=== PATIENT | female | born 1995 | race Caucasian/White ===

== ENCOUNTER 2016-10-04 07:57 | Emergency (ER) | payer BC ==
[~2016-10-04] VITALS: Ht 177.8 cm; Wt 72.0 kg
[2016-10-04 08:04] VITALS: TEMP 36.5; Ht 177.8 cm; Wt 72.0 kg
[2016-10-04] MEDS ORDERED: SODIUM CHLORIDE 0.9% 1000ML 1,000 ML IV STA (08:11)
[2016-10-04] MEDS ORDERED: ONDANSETRON INJ 2 MG/ML 2 ML VIAL IV STA (08:11)
[2016-10-04] MEDS ORDERED: KETOROLAC TROMETHAMINE 30 MG/ML VIAL IV STA (08:11)
[2016-10-04] MEDS ORDERED: NAPR1TAB9 PO (08:17)
--- NOTE | 2016-10-04 08:21 | EMERGENCY ROOM VISIT NOTE ---
History Report prepared by Hilda: Maximus Vora Under the Supervision of: Dr. Remy Guevara M.D. First contact with patient: 08:03 Chief Complaint: LEG PAIN,LEG INJURY Stated Complaint: PAIN IN LEFT LEG History of Present Illness The patient is a 21 year old female who presents to the Emergency Room with complaints of worsening left leg pain that started 4 days ago. She states that her pain is from her left hip and downwards. The patient says that her left hip hurts when rotating. She cannot sit or stand without pain. The patient has been dealing with this pain since June. She went to her primary care physician for the pain, and was referred to [facility] orthopedics. Orthopedics then referred her to physical therapy, where the patient was diagnosed with tendonitis. The patient did get a hip x-ray. After going to physical therapy a month ago, she felt fine for a while and had been exercising. 5 days ago, she ran for a bit and felt okay. She got a massage the next day, and later that day , the pain started to come on again. The patient states that the pain is so bad that it makes her cry. She denies any swelling to her leg or any sudden injury that may have caused the pain. The patient notes that she does not think she runs "right". She has been using an Aleve equivalent [id number] medication for the pain. She is a non-smoker and has no medication allergies. Source of History: patient Onset: 4 days ago Position: leg (left) Symptom Intensity: so bad that it makes her cry Timing: worsening Modifying Factors (Worsening): movement Note: Associated symptoms: Left hip pain. Denies any swelling to her leg. Review of Systems See HPI for pertinent positives & negatives. A total of 10 systems reviewed and were otherwise negative. Past Medical & Surgical Medical Problems: (1) Tendonitis Family History Cancer Social History Smoking Status: Never Smoker Alcohol Use: occasionally Marital Status: in relationship Housing Status: lives with significant other Occupation Status: employed Current/Historical Medications Scheduled Diclofenac (Voltaren), 75 MG PO BID Miscellaneous Medications Naproxen (Aleve), 440 MG PO Allergies Coded Allergies: No Known Allergies (Unverified , 10/04/16) Physical Exam Vital Signs Date Time Temp Pulse Resp B/P Pulse Ox O2 Delivery O2 Flow Rate FiO2 10/04/16 12:13 48 18 109/70 100 Room Air 10/04/16 10:53 52 18 104/56 98 Room Air 10/04/16 09:26 47 18 114/68 99 Room Air 10/04/16 08:04 36.5 56 18 118/72 99 Room Air Physical Exam GENERAL: Patient is in no acute distress. HEENT: No acute trauma, normocephalic atraumatic, mucous membranes moist, no nasal congestion, no scleral icterus. NECK: No stridor, no adenopathy, no meningismus, trachea is midline. LUNGS: Clear to auscultation bilaterally, no wheeze, no rhonchi, breath sounds equal. HEART: Without murmurs gallops or rubs, regular rate and rhythm. ABDOMEN: Soft, nontender, bowel sounds positive, no hernias, no peritonitis. EXTREMITIES: No leg swelling. No evidence for lower extremity neurovascular compromise. No swelling of the ankle or knee joints. Tenderness to palpation of left quadriceps muscle and left quadriceps tendon. No evidence of tendon rupture. Movement of left hip and left knee causes pain. NEUROLOGIC: Oriented x 3, no acute motor or sensory deficits, no focal weakness. SKIN: No rash, no jaundice, no diaphoresis. Medical Decision & Procedures ER Provider Diagnostic Interpretation: X ray results and stated below per my interpretation and radiologist interpretation. Other radiology results and stated below per my review and radiologist interpretation: PELVIS 1 OR 2 VIEW ROUTINE CLINICAL HISTORY: pain COMPARISON STUDY: No previous studies for comparison. FINDINGS: No fractures are visualized. There are no erosive or destructive changes. IMPRESSION: No fractures, dislocations, or destructive lesions are visualized. Electronically signed by: Osman Quijano M.D. 10/04/2016 9:21 AM Dictated Date/Time: 10/04/2016 9:20 AM ULTRASOUND LEFT VENOUS DOPP LOWER EXT UNILAT CLINICAL HISTORY: Left leg pain and swelling COMPARISON STUDY: No previous studies for comparison. FINDINGS: Real-time and color flow Doppler imaging were performed. Flow was seen within the femoral, popliteal and calf veins with no intraluminal thrombus demonstrated. The saphenous vein is patent. IMPRESSION: No evidence of left lower extremity DVT. Electronically signed by: Osman Quijano M.D. 10/04/2016 9:07 AM Dictated Date/Time: 10/04/2016 9:07 AM LEFT KNEE 1 OR 2 VIEWS ROUTINE CLINICAL HISTORY: pain, left COMPARISON: None. DISCUSSION: The bones and joint spaces appear intact. There is no evidence of fracture, dislocation or bony disease. There is no evidence for soft tissue swelling. IMPRESSION: Negative study. Electronically signed by: Edwin Brown M.D. 10/04/2016 9:22 AM Dictated Date/Time: 10/04/2016 9:21 AM LEFT FEMUR 2 VIEWS ROUTINE CLINICAL HISTORY: pain, left pain COMPARISON: None. DISCUSSION: The bones and joint spaces appear intact. There is no evidence of fracture, dislocation or bony disease. There is no evidence for soft tissue swelling. IMPRESSION: Negative study. Electronically signed by: Edwin Brown M.D. 10/04/2016 9:21 AM Dictated Date/Time: 10/04/2016 9:19 AM Laboratory Results 10/04/16 08:20 Red Blood Count 4.78, Mean Corpuscular Volume 85.8, Mean Corpuscular Hemoglobin 28.7, Mean Corpuscular Hemoglobin Concent 33.4, Mean Platelet Volume 10.0, Neutrophils (%) (Auto) 48.1, Lymphocytes (%) (Auto) 34.7, Monocytes (%) (Auto) 13.6, Eosinophils (%) (Auto) 3.2, Basophils (%) (Auto) 0.2, Neutrophils # (Auto ) 1.94, Lymphocytes # (Auto) 1.40, Monocytes # (Auto) 0.55, Eosinophils # (Auto ) 0.13, Basophils # (Auto) 0.01 10/04/16 08:20 Test 10/04/16 08:20 White Blood Count 4.04 K/uL (4.8-10.8) Red Blood Count 4.78 M/uL (4.2-5.4) Hemoglobin 13.7 g/dL (12.0-16.0) Hematocrit 41.0 % (37-47) Mean Corpuscular Volume 85.8 fL (80-100) Mean Corpuscular Hemoglobin 28.7 pg (25-34) Mean Corpuscular Hemoglobin Concent 33.4 g/dl (32-36) Platelet Count 163 K/uL (130-400) Mean Platelet Volume 10.0 fL (7.4-10.4) Neutrophils (%) (Auto) 48.1 % Lymphocytes (%) (Auto) 34.7 % Monocytes (%) (Auto) 13.6 % Eosinophils (%) (Auto) 3.2 % Basophils (%) (Auto) 0.2 % Neutrophils # (Auto) 1.94 K/uL (1.4-6.5) Lymphocytes # (Auto) 1.40 K/uL (1.2-3.4) Monocytes # (Auto) 0.55 K/uL (0.11-0.59) Eosinophils # (Auto) 0.13 K/uL (0-0.5) Basophils # (Auto) 0.01 K/uL (0-0.2) RDW Standard Deviation 41.4 fL (36.4-46.3) RDW Coefficient of Variation 13.2 % (11.5-14.5) Immature Granulocyte % (Auto) 0.2 % Immature Granulocyte # (Auto) 0.01 K/uL (0.00-0.02) Erythrocyte Sedimentation Rate 4 mm/hr (0-21) Anion Gap 9.0 mmol/L (3-11) Est Creatinine Clear Calc Drug Dose 137.1 ml/min Estimated GFR () 142.2 Estimated GFR (Non- 122.7 BUN/Creatinine Ratio 18.7 (10-20) Calcium Level 9.1 mg/dl (8.5-10.1) Total Creatine Kinase 57 U/L (26-192) C-Reactive Protein < 0.29 mg/dl (0-0.29) Thyroid Stimulating Hormone (TSH) 2.050 uIu/ml (0.300-4.500) Lyme Disease IgG Antibody NEG (NEG) Lyme Disease IgM Antibody NEG (NEG) Laboratory results reviewed by me. Medications Administered Medications (Trade) Dose Ordered Sig/Katty Route Start Time Stop Time Status Last Admin Dose Admin Ketorolac Tromethamine (Toradol Inj) 30 mg NOW STAT IV 10/04/16 08:11 10/04/16 08:15 DC 10/04/16 08:29 30 MG Morphine Sulfate (MoRPHine SULFATE INJ) 4 mg Q15M PRN IV 10/04/16 08:15 10/04/16 12:50 DC 10/04/16 09:38 4 MG Ondansetron HCl 4 mg 4 mg NOW STAT IV 10/04/16 08:11 10/04/16 08:15 DC 10/04/16 08:28 4 MG Sodium Chloride (Nss 1000ml) 1,000 ml @ 999 mls/hr Q1H1M STAT IV 10/04/16 08:11 10/04/16 09:11 DC 10/04/16 08:28 999 MLS/HR ED Course 0804: The patient was evaluated in room A12B. A complete history and physical exam was performed. 0811: Ordered NSS 1000 ml @ 999 mls/hr IV, Zofran Inj 4 mg IV, Toradol Inj 30 mg IV. 0815: Ordered Morphine Sulfate Inj 4 mg IV PRN. 0934: I reevaluated the patient. 1011: I discussed the patient with the on-call for [facility] - he will see if he can arrange to have someone see the patient or if he will have the patient come to the office. He will let us know. 1054: I reevaluated the patient and told her that she will be seen by orthopedics. 1215: Reevaluated the patient. Discussed results and discharge instructions: She verbalized understanding and agreement. The patient is ready for discharge. Medical Decision Differential diagnosis includes but is not limited to muscle tear, muscle strain , tendonitis, Lyme disease, rhabdomyolysis, contusion, DVT, over-use. There is no leukocytosis or concerning anemia. No significant electrolyte abnormality or kidney failure. Total CK is not suggestive of rhabdomyolysis. Left leg ultrasound does not show evidence for DVT. Pelvis, left femur and left knee films show no fractures. The patient appears to be in a euthyroid state. Sedimentation rate and C-reactive protein are both normal. The patient received IV saline, IV Toradol, IV morphine. She is more comfortable after the second dose of morphine. The patient was seen by orthopedics here in the emergency room. She is being discharged with crutches, rest, outpatient follow-up. She was encouraged to return here if worsening. The cause for her pain is not clear. Consults Time Called: 1008 Consulting Physician: On-call for [facility] Returned Call: 1011 I discussed the patient with the on-call for [facility] - he will see if he can arrange to have someone see the patient or if he will have the patient come to the office. He will let us know. Impression Primary Impression: Left leg pain Scribe Attestation The scribe's documentation has been prepared under my direction and personally reviewed by me in its entirety. I confirm that the note above accurately reflects all work, treatment, procedures, and medical decision making performed by me. Departure Information Dispostion Home / Self-Care Prescriptions Diclofenac (Voltaren) 75 Mg Tabcr 75 MG PO BID, #20 TAB Prov: Jourdan Schultz,P.A. 10/04/16 Referrals Ryan Bower, D.O. (PCP) Forms HOME CARE DOCUMENTATION FORM, IMPORTANT VISIT INFORMATION, TYLENOL USE Patient Instructions My [facility] Additional Instructions follow up with Dr. Ribeiro on 10/11 at 8:15am in the office ice intermittently as needed for pain control elevate the leg at night to reduce any swelling use crutches for ambulation-toe touch for balance for the next 3 days, then progress weight bearing as tolerated. stop aleve start voltaren 75mg twice per day with food. add tylenol every 6 hours as needed call the office for any worsening pain ([phone]) do not run or train. you may stretch as needed
[2016-10-04] MEDS: MoRPHine SULFATE 4 MG/ML 1 ML CARP\\VIAL IV PRN ×2 (08:28→09:38)
[2016-10-04 08:32] LABS: BASO % 0.2 %; BASO ABS # 0.01 K/uL (0-0.2); COMPLETE YES; EOS % 3.2 %; IG% 0.2 %; LYMPH % 34.7 %; MEAN CELL VOLUME 85.8 fL (80-100); MEAN CORPUSCULAR HEMOGLOBIN 28.7 pg (25-34); MEAN CORPUSCULAR HGB CONC 33.4 g/dl (32-36); MONO % 13.6 %; NEUT % 48.1 %; PLATELET COUNT 163 K/uL (130-400); RED BLOOD COUNT 4.78 M/uL (4.2-5.4); WHITE BLOOD COUNT 4.04 K/uL (4.8-10.8)
[2016-10-04 08:48] LABS: BUN/CREATININE RATIO 18.7 (10-20); CALCIUM 9.1 mg/dl (8.5-10.1); CREATININE 0.69 mg/dl (0.60-1.20); POTASSIUM 4.3 mmol/L (3.5-5.1)
[2016-10-04 08:58] LABS: THYROID STIMULATING HORMONE 2.05 uIu/ml (0.300-4.500)
--- NOTE | 2016-10-04 09:09 | DIAGNOSTIC IMAGING REPORT ---
ULTRASOUND LEFT VENOUS DOPP LOWER EXT UNILAT CLINICAL HISTORY: Left leg pain and swelling COMPARISON STUDY: No previous studies for comparison. FINDINGS: Real-time and color flow Doppler imaging were performed. Flow was seen within the femoral, popliteal and calf veins with no intraluminal thrombus demonstrated. The saphenous vein is patent. IMPRESSION: No evidence of left lower extremity DVT. Electronically signed by: Osman Quijano M.D. 10/04/2016 9:07 AM Dictated Date/Time: 10/04/2016 9:07 AM
--- NOTE | 2016-10-04 09:22 | DIAGNOSTIC IMAGING REPORT ---
LEFT FEMUR 2 VIEWS ROUTINE CLINICAL HISTORY: pain, left pain COMPARISON: None. DISCUSSION: The bones and joint spaces appear intact. There is no evidence of fracture, dislocation or bony disease. There is no evidence for soft tissue swelling. IMPRESSION: Negative study. Electronically signed by: Edwin Brown M.D. 10/04/2016 9:21 AM Dictated Date/Time: 10/04/2016 9:19 AM
--- NOTE | 2016-10-04 09:22 | DIAGNOSTIC IMAGING REPORT ---
PELVIS 1 OR 2 VIEW ROUTINE CLINICAL HISTORY: pain COMPARISON STUDY: No previous studies for comparison. FINDINGS: No fractures are visualized. There are no erosive or destructive changes. IMPRESSION: No fractures, dislocations, or destructive lesions are visualized. Electronically signed by: Osman Quijano M.D. 10/04/2016 9:21 AM Dictated Date/Time: 10/04/2016 9:20 AM
--- NOTE | 2016-10-04 09:23 | DIAGNOSTIC IMAGING REPORT ---
LEFT KNEE 1 OR 2 VIEWS ROUTINE CLINICAL HISTORY: pain, left COMPARISON: None. DISCUSSION: The bones and joint spaces appear intact. There is no evidence of fracture, dislocation or bony disease. There is no evidence for soft tissue swelling. IMPRESSION: Negative study. Electronically signed by: Edwin Brown M.D. 10/04/2016 9:22 AM Dictated Date/Time: 10/04/2016 9:21 AM
[2016-10-04 09:27] LABS: LYME DISEASE AB IGG NEG (NEG); LYME DISEASE AB IGM NEG (NEG)
[2016-10-04 12:13] VITALS: BP 109/70; PULSE 48; O2SAT 100
[2016-10-04] MEDS ORDERED: DICL-201 PO (12:14)
--- NOTE | 2016-10-04 13:20 | HISTORY & PHYSICAL EXAMINATION ---
DATE OF ADMISSION: 10/04/2016 CHIEF COMPLAINT: Left thigh pain. HISTORY OF PRESENT ILLNESS: This 21-year-old white female presented to the ED with complaints of left thigh pain that have been ongoing for the last several days. It has been getting worse with time. She previously had similar discomfort and was seen at our office by Dr. Ribeiro. She was diagnosed with hip flexor tendinitis and prescribed physical therapy. She states she did go to therapy and improved. She has continued with her home exercise program. She is trying to train for a 5K. She has been running on the treadmill. Approximately 5 days ago, she was jogging on the treadmill and decided to go a little faster for a short period of time. She increased the speed but states she only ran for only for about 30 seconds. She had no discomfort or pain at that point. Later that evening her discomfort increased. She states that it has been progressively worse. It is now affecting her sleep. She states she was crying last night because of the pain. She presented here to the ED with pain that caused her to cry as well. No numbness or tingling. Pain is transient. Sometimes it is on the lateral aspect of her pelvis, sometimes it is in the anterior thigh, and sometimes it is above the patella. She denies any fevers, chills, sweats, nausea, or vomiting. She was having some difficulty walking this morning. No other complaints at this point. No prior history of similar discomfort. No symptoms on the right. Her boyfriend accompanies her today. PAST MEDICAL HISTORY: Significant for hip flexor tendinitis. PREVIOUS SURGERIES: None. SOCIAL HISTORY: The patient is employed. No tobacco use, occasional ETOH use. Lives with her significant other. Employed. CURRENT MEDICATIONS: Aleve 440 mg b.i.d. ALLERGIES: NKDA. FAMILY HISTORY: Significant for cancer. Significant for scoliosis and degenerative disc disease. REVIEW OF SYSTEMS: Significant for above stated conditions, otherwise unremarkable. PHYSICAL EXAMINATION: GENERAL: Well-developed, well-nourished young, white female in no acute distress. Lying on a bed. Alert and oriented. VITAL SIGNS: Vitals today are normal. Temperature 36.5, pulse 56, BP 118/72, O2 sat 99% on room air. SKIN: Warm and dry with good turgor. No rashes or lesions. No ecchymosis or erythema. EXTREMITIES: No edema. MUSCULOSKELETAL: Left leg has no obvious asymmetry or deformity. She has full range of motion of her hip without discomfort. Full range of motion of her knee without discomfort. Stable cruciate and collateral ligaments. No intra-articular effusion at either site. No pain with palpation over her greater trochanter. Mild discomfort with palpation over the proximal IT band. This is intermittent and not reliably reproducible. She has no pain with palpation over her quadriceps or distal IT band. No pain with palpation over her hamstring musculature or tendons. Placing her leg in a slightly hip flexed, slightly knee flexed position at about 20 degrees, and having her actively extend her knee does create reproducible suprapatellar pouch discomfort. However, when I flex her knee to 80 or 90 degrees and have her stand there is no reproducible discomfort. No pain with palpation over the patella tendon or quadriceps tendon. There is no defect. No pain currently with palpation over the proximal hip flexor tendon. She is able to set her quad and perform a straight leg raise without difficulty. When side lying, she can also actively abduct. This does recreate some minor discomfort over the proximal IT band. No pain with log rolling of the hip. Bilateral ankle exam is benign. NEUROLOGIC: Gross sensation is intact across all dermatomes of the left leg by soft touch. Peripheral pulses are 2+. DTRs are 2+ at the knee and ankle. DATA: Pelvic x-ray obtained today was read by radiology as unremarkable. Left knee and left femur films were also obtained and were read by radiology as unremarkable. I did review these. I find no evidence for stress fracture or heterotopic ossification. Ultrasound obtained today of the left lower extremity was negative for DVT. This was read by radiology. CBC, PRP, TSH, total CK, and Lyme antibody were all obtained. They are all unremarkable. IMPRESSION: Left leg pain. Left hip flexor tendinitis. PLAN: The patient was educated regarding today's findings. Conservative care measures were discussed. Her symptoms are transient and not reliably reproduced. I am not sure exactly what is causing her symptoms. Possibility of exacerbation of her hip flexor tendinitis was discussed as well as possibility of IT band syndrome due to her running style. She has already been given Toradol, morphine, and Zofran. This may be blunting her discomfort and altering her physical exam. I would like her to stay on crutches and use toe touch weightbearing. Follow up with Dr. Ribeiro on October 11 at 8:15 in the morning for reexamination. If her pain should become acutely different, she should call the office for followup. She will stop the Aleve. She was prescribed Voltaren 75 mg b.i.d. with food for the next 10 days. Supplement with Tylenol. She may continue with gentle stretching, but should avoid any running or vigorous training. Care plan was discussed with Dr. Chen. Differential includes but is not limited to muscle tear, muscle strain, tendinopathy, tendinitis, Lyme disease, rhabdomyolysis, stress fracture of the femur, stress fracture of the hip, septic joint, DVT, overuse syndrome, and IT band syndrome.
[2016-10-04] MEDS ORDERED: IBUP-1459 PO (23:51)
[2016-10-06] MEDS ORDERED: NRN300 PO (17:18)
[2016-10-06] MEDS ORDERED: METH4PAK PO (17:18)
[2016-10-06] MEDS ORDERED: SENN8.6T7 PO (17:18)
[2016-10-06] MEDS ORDERED: RXC5 PO (17:18)
[2017-02-14] MEDS ORDERED: NAPR1TAB9 PO (13:37)
[2017-02-14] MEDS ORDERED: OXYC1TAB3 PO (13:37)
== END 2016-10-04 12:37 | disposition home or self-care (01) ==
LOC: C.EDB 08:00 → C.EDA 12:37
DX: M79.605 Pain in left leg (principal); M65.9 Synovitis and tenosynovitis, unspecified; Z80.9 Family history of malignant neoplasm, unspecified

== ENCOUNTER 2016-10-04 23:17 | Observation (INO) | payer BC ==
[~2016-10-04] VITALS: Ht 177.8 cm; Wt 71.2 kg
[~2016-10-04 23:17] MED LIST: DICL-201 PO; NAPR1TAB9 PO
[2016-10-04] MEDS ORDERED: SODIUM CHLORIDE 0.9% 1000ML 1,000 ML IV STA (23:41)
[2016-10-04] MEDS ORDERED: MoRPHine SULFATE 4 MG/ML 1 ML CARP\\VIAL IV STA (23:41)
[2016-10-04] MEDS ORDERED: IBUP-1459 PO (23:51)
[2016-10-05] MEDS ORDERED: HYDROmorphone INJ 1 MG/ML SYR IV STA (00:34)
[2016-10-05 00:49] LABS: URINE APPEARANCE CLEAR (CLEAR); URINE BILIRUBIN NEG (NEG); URINE COLOR YELLOW; URINE EPITHELIAL CELL AUTO >30 /lpf (0-5); URINE NITRITE NEG (NEG); URINE PH 6.5 (4.5-7.5); URINE SPECIFIC GRAVITY 1.019 (1.000-1.030); UROBILINOGEN NEG (NEG); ZZUR CULT IF INDIC CLEAN CATCH YES
[2016-10-05 00:51] LABS: MANUAL MICROSCOPIC REQUIRED? NO; REVIEW REQ? NO
[2016-10-05] MEDS ORDERED: METHYLPREDNISOLONE 125 MG VIAL IV STA (02:44)
[2016-10-05] MEDS ORDERED: IV FLUIDS COMPLETED PRN (03:15)
[2016-10-05 03:30] VITALS: BP 111/67; PULSE 43; TEMP 36.7; O2SAT 98; Ht 177.8 cm; Wt 71.2 kg
[2016-10-05] MEDS ORDERED: HYDROCODONE/ACETAMOPHEN 5/325MG TAB PO PRN (03:30)
--- NOTE | 2016-10-05 03:35 | History and Physical ---
History & Physical Date & Time of Service: Oct 05, 2016 at 03:27 Chief Complaint: Severe Pain In Left Leg Primary Care Physician: Ryan Bower D.ODasia History of Present Illness Source: patient, hospital records 21 year old female with no known past medical history presenting with persistent left leg pain since last Sunday. Follows with Dr. Bower for Primary Care. Patient was at her usual state of health until last Sunday, after exercising- treadmill, weights, planks- patient started to experience left leg pain initially on left lower leg, then on her thigh. The left leg pain continued on and actually progressed thereafter. Movement worsens the pain. No incontinence, leg weakness/numbness. Patient took Alleve with no relief of pain.. Denies recent trauma. Patient presented to the ER this morning. No DVT, Pelvic/knee/femoral xrays did not show fracture. She was discharged home, and but pain progressed; hence, returned to the ER in the evening. MRI Lumbar spine showed disc protrusion L4-s1 with mild-moderate canal narrowing. On exam, patient's leg pain somewhat impoved with IV Dilaudid, Solumedrol. No leg weakness/numbness. No other symptoms. Past Medical/Surgical History Medical Problems: (1) Tendonitis Status: Chronic Family History Cancer Social History Smoking Status: Never Smoker Marital Status: in relationship Occupational Status: employed Allergies Coded Allergies: No Known Allergies (Unverified , 10/04/16) Home Medications Scheduled Diclofenac (Voltaren), 75 MG PO BID Scheduled PRN Ibuprofen (Motrin), 400 MG PO Q6H PRN for Pain Miscellaneous Medications Naproxen (Aleve), 440 MG PO Review of Systems Constitutional- no fever; no weight loss Eyes- no acute visual changes ENT- no sinus drainage; no pharyngitis Pulmonary- no cough, no wheezing, no shortness of breath Cardiac- no chest pain, no palpitations, no orthopnea, no dependent edema GI- no nausea, no vomiting, no diarrhea, no melena, no hematochezia - no dysuria, no hematuria Musculoskeletal- no arthralgias, no myalgias Derm- no rashes, no new skin lesions, no changing skin lesions Hematologic- no unusual bruising, no unusual bleeding Lymphatics- no adenopathy Endocrine- no polyuria or polydipsia; no heat or cold intolerance Neuro- no headaches, no focal neurologic symptoms Psych- no anxiety, no depression Physical Exam Vital Signs Date Time Temp Pulse Resp B/P Pulse Ox O2 Delivery O2 Flow Rate FiO2 10/05/16 03:22 47 18 104/58 98 10/05/16 01:48 56 20 112/73 97 Room Air 10/05/16 00:51 50 16 113/70 96 Room Air 10/05/16 00:41 49 16 118/84 100 Room Air 10/04/16 23:24 36.9 54 20 120/79 100 Room Air General Appearance: WD/WN, no apparent distress Head: normocephalic, atraumatic Eyes: normal inspection, EOMI, sclerae normal ENT: normal ENT inspection, hearing grossly normal, pharynx normal Neck: supple, no adenopathy, thyroid normal, no JVD, trachea midline Respiratory/Chest: chest non-tender, lungs clear, normal breath sounds, no respiratory distress, no accessory muscle use Cardiovascular: regular rate, rhythm, no edema, no gallop, no JVD, no murmur Abdomen/GI: normal bowel sounds, non tender, soft Back: normal inspection, no CVA tenderness Extremities/Musculoskelatal: normal inspection, no calf tenderness, no pedal edema, + pertinent finding ((+) straight leg test) Neurologic/Psych: overnight houseperson II-XII nml as tested, no motor/sensory deficits, alert, normal mood/affect, normal reflexes, oriented x 3 Skin: normal color, warm/dry, no rash Lymphatic: + axillary node abnormality Diagnostics Laboratory Results Results Past 24 Hours Test 10/05/16 00:30 Range/Units Urine Color YELLOW Urine Appearance CLEAR CLEAR Urine pH 6.5 4.5-7.5 Urine Specific [place] 1.019 1.000-1.030 Urine Protein NEG NEG Urine Glucose (UA) NEG NEG Urine Ketones NEG NEG Urine Occult Blood NEG NEG Urine Nitrite NEG NEG Urine Bilirubin NEG NEG Urine Urobilinogen NEG NEG Urine Leukocyte Esterase NEG NEG Urine WBC (Auto) 1-5 0-5 /hpf Urine RBC (Auto) 0-4 0-4 /hpf Urine Hyaline Casts (Auto) 1-5 0-5 /lpf Urine Epithelial Cells (Auto) >30 0-5 /lpf Urine Bacteria (Auto) 1+ NEG Urine Test NEG NEG Microbiology Results 10/05/16 Urine Culture, Received Pending Diagnostic Radiology per H&P Impression Assessment and Plan 21 year old female with no known past medical history presenting with persistent left leg pain since last Sunday. INTRACTABLE LEFT LEG PAIN IN THE SETTING OF L4-S1 DISC HERNIATION WITH CENTRAL CANAL NARROWING - start with Dilaudid 1mg IV q3h, [place] 1 tab q4h PRN IV fluids, Senokot S PT/OT - Pain Management and Ortho Spine consult DVT prophylaxis SCDs Disposition pending anticipate d/c home when medically stable VTE Prophylaxis VTE Risk Assessment Done? Y/N: Yes Risk Level: Low
--- NOTE | 2016-10-05 03:40 | EMERGENCY ROOM VISIT NOTE ---
History Report prepared by Hilda: Anthony Contreras Under the Supervision of: Dr. Delfin Colvin M.D. First contact with patient: 23:32 Chief Complaint: LEG PAIN,LEG INJURY Stated Complaint: SEVERE PAIN IN LEFT LEG History of Present Illness The patient is a 21 year old female who presents to the Emergency Room with complaints of persistent left leg pain for the past four days. The pain is localized to the thigh area and radiates down to the [place]. The pain is worse with touch and movement. The patient was running on a treadmill and also had a deep tissue massage prior to the onset of pain four days ago. The patient was in the ED earlier today for the same pain and had negative X-rays. She had Morphine in the ED, which did help. The patient had back pain which is currently resolved. She denies incontinence of the bowel or bladder or weakness / numbness. She has not noticed any rashes. The patient had the same pain back in July when she was diagnosed with tendonitis. She followed up with Orthopedics at that time. The patient was also going to physical therapy, which did help. The patient denies any recent heavy lifting. The patient denies IV drug use. She is not a smoker. The patient denies the possibility of . Source of History: patient Onset: four days ago Position: leg (left) Timing: other (persistent) Modifying Factors (Worsening): movement, other (touch) Modifying Factors (Relieving): narcotics Associated Symptoms: + back pain, No numbness, No urinary symptoms, No weakness Review of Systems See HPI for pertinent positives & negatives. A total of 10 systems reviewed and were otherwise negative. Past Medical & Surgical Medical Problems: (1) Tendonitis Family History Cancer Social History Smoking Status: Never Smoker Alcohol Use: occasionally Marital Status: in relationship Housing Status: lives with significant other Occupation Status: employed Current/Historical Medications Scheduled Diclofenac (Voltaren), 75 MG PO BID Scheduled PRN Ibuprofen (Motrin), 400 MG PO Q6H PRN for Pain Miscellaneous Medications Naproxen (Aleve), 440 MG PO Allergies Coded Allergies: No Known Allergies (Unverified , 10/04/16) Physical Exam Vital Signs Date Time Temp Pulse Resp B/P Pulse Ox O2 Delivery O2 Flow Rate FiO2 10/05/16 03:22 47 18 104/58 98 10/05/16 01:48 56 20 112/73 97 Room Air 10/05/16 00:51 50 16 113/70 96 Room Air 10/05/16 00:41 49 16 118/84 100 Room Air 10/04/16 23:24 36.9 54 20 120/79 100 Room Air Physical Exam GENERAL: Patient is severely uncomfortable appearing, crying, in moderate distress. Severe pain with sitting up or turning over. HEENT: No acute trauma, normocephalic atraumatic, mucous membranes moist, no nasal congestion, no scleral icterus. NECK: No stridor, no adenopathy, no meningismus, trachea is midline. LUNGS: No dyspnea. Clear to auscultation and equal bilaterally. No wheeze, no rhonchi. HEART: Regular rate and rhythm. No murmurs, rubs, gallops appreciated. ABDOMEN: Soft, nontender, bowel sounds positive, no masses appreciated, no peritonitis. BACK: No midline tenderness, no CVA tenderness EXTREMITIES: Vague tenderness of the left upper buttock, left lateral thigh, and left lateral [place]. Pulses sensation and movement fully intact left leg. NEUROLOGIC: Alert and oriented, no acute motor or sensory deficits, no focal weakness, cranial nerves grossly intact. SKIN: No rash, no jaundice, no diaphoresis. Medical Decision & Procedures ER Provider Diagnostic Interpretation: Radiology results and stated below per my review and radiologist interpretation: MRI LUMBAR SPINE Disc protrusion/extrusions at the L4-L5 and L5-S1. Mild moderate central canal narrowing at the L4-L5. Cant exclude fragment in the left paracentral region subarticular recess. No foraminal compromise. Mild central canal narrowing at L5-S1. No foraminal compromise. Mild subcutaneous edema. Radiologist: Jess portillo MD. Laboratory Results Test 10/05/16 00:30 Urine Color YELLOW Urine Appearance CLEAR (CLEAR) Urine pH 6.5 (4.5-7.5) Urine Specific [place] 1.019 (1.000-1.030) Urine Protein NEG (NEG) Urine Glucose (UA) NEG (NEG) Urine Ketones NEG (NEG) Urine Occult Blood NEG (NEG) Urine Nitrite NEG (NEG) Urine Bilirubin NEG (NEG) Urine Urobilinogen NEG (NEG) Urine Leukocyte Esterase NEG (NEG) Urine WBC (Auto) 1-5 /hpf (0-5) Urine RBC (Auto) 0-4 /hpf (0-4) Urine Hyaline Casts (Auto) 1-5 /lpf (0-5) Urine Epithelial Cells (Auto) >30 /lpf (0-5) Urine Bacteria (Auto) 1+ (NEG) Urine Test NEG (NEG) Laboratory results as reviewed by me. Medications Administered Medications (Trade) Dose Ordered Sig/Katty Route Start Time Stop Time Status Last Admin Dose Admin Sodium Chloride (Nss 1000ml) 1,000 ml @ 999 mls/hr Q1H1M STAT IV 10/04/16 23:41 10/05/16 00:41 DC 10/04/16 23:59 999 MLS/HR Morphine Sulfate (MoRPHine SULFATE INJ) 4 mg NOW STAT IV 10/04/16 23:41 10/04/16 23:43 DC 10/05/16 00:00 4 MG Hydromorphone HCl (Dilaudid Inj) 1 mg NOW STAT IV 10/05/16 00:34 10/05/16 00:35 DC 10/05/16 00:41 1 MG Methylprednisolone Sodium Succinate (Solu-Medrol IV) 125 mg NOW STAT IV 10/05/16 02:44 10/05/16 02:46 DC 10/05/16 03:07 125 MG ED Course 2335: The patient was evaluated in room B12b. A complete history and physical exam was performed. 2340: The [place] Prescription Drug Monitoring Program was reviewed regarding this patient. 2341: Morphine Sulfate 4 mg IV, NSS 1000 ml @ 999 mls/hr. 0034: Dilaudid 1 mg IV. 0140: The patient is feeling good but is unable to sit up without severe pain. 0226: The patient is still unable to sit up secondary to pain. She feels pretty good at rest. 0243: Discussed the case with Dr. Callejas, Orthopedic Surgeon. He agrees with IV steroids and internal medicine evaluation. 0244: Solu-Medrol 125 mg IV. 0249: Updated the patient. She agrees with the plan. 0250: Spoke with Dr. Elias, [facility]. The patient will be evaluated. Medical Decision Differential: Musculoskeletal, Disc Herniation, Fracture, Cord Compression, Discitis, Infectious, Aortic Pathology, Renal Colic, UTI/Pyelonephritis, Acute Exacerbation of Chronic Pain, Sciatica, Cauda Equina, amongst other pathologies entertained. 21 yr old female arrives to ED for second time today complaining of left leg pain radiating mid lateral thigh to ankle. Increasing pain since discharge and unable to walk or sit up without severe pain. Exam she has intact neuro with good strength and normal pulses. Unable to have straight leg raise due to pain. Abdomen soft, non-tender. Extensive labs earlier negative with normal ESR/CRP. Normal xray imaging of leg/pel earlier. 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 [place] MRI lumbar needed to rule out issue there. Shows disc protrusion L4/5 and L5/S1. Non-surgical currently. With inability to even sit up without severe pain post morphine and dilaudid will need to come in for intractable pain and further work-up. No other neuro issues. Given IV solu-medrol with suspicion this is nerve related [place] Drug Monitoring Program Search Results: patient reviewed within database, no issues identified Consults Time Called: 225 Consulting Physician: Dr. Callejas, Orthopedic Surgeon Returned Call: [phone]: Discussed the case with Dr. Callejas, Orthopedic Surgeon. He agrees with IV steroids and internal medicine evaluation. Additional Consults: Time Called: 024 [facility] Returned Call: [phone] Additional Comments: 0250: [facility] The patient will be evaluated. Impression Primary Impression: Intractable back pain Additional Impression: Protrusion of intervertebral disc Scribe Attestation The scribe's documentation has been prepared under my direction and personally reviewed by me in its entirety. I confirm that the note above accurately reflects all work, treatment, procedures, and medical decision making performed by me. Departure Information Dispostion Being Evaluated By Hospitalist Referrals Ryan Bower D.O. (PCP) Patient Instructions [facility] Problem Qualifiers
[2016-10-05] MEDS ORDERED: SODIUM CHLORIDE 0.9% 1000ML 1,000 ML IV SCH (04:00)
[2016-10-05] MEDS: HYDROmorphone INJ 1 MG/ML SYR IV PRN ×4 (04:05→22:03)
[2016-10-05] MEDS: ONDANSETRON INJ 2 MG/ML 2 ML VIAL IV PRN (06:43)
[2016-10-05 07:25] VITALS: BP 97/61; PULSE 50; TEMP 37; O2SAT 97
--- NOTE | 2016-10-05 07:55 | DIAGNOSTIC IMAGING REPORT ---
LUMBAR SPINE MRI HISTORY: left leg intractable sciatica TECHNIQUE: Multiplanar multisequence MRI of the lumbar spine was performed without the use of contrast. COMPARISON: None. FINDINGS: For the purpose of the report the L5-S1 disc space will be located on axial image 27 of 30. Alignment and curvature are intact. No fracture or subluxation. There is disc desiccation and mild disc space narrowing at L4-L5 and L5-S1. The conus terminates at the L1 level. There is focal dilatation of the central canal at the distal thoracic spinal cord at the T12 level. This measures up to 3 mm and is consistent with a small syrinx. The visualized paraspinal soft tissues are unremarkable. L1-L2: No significant central canal or neural foraminal narrowing. L2-L3: No significant central canal or neural foraminal narrowing. L3-L4: No significant central canal or neural foraminal narrowing. L4-L5: There is an 18 x 7 mm broad-based posterior disc protrusion with a small focal segment demonstrating left paracentral inferior subligamentous migration. This results in [id number] central canal narrowing. This compresses the transiting left L5 nerve root and abuts the transiting right L5 nerve root. No significant neural foraminal narrowing. L5-S1: Moderate size focal central disc protrusion measuring 12 x 7 mm which abuts the left transiting S1 nerve root. This results in mild central canal narrowing. No significant neural foraminal narrowing. IMPRESSION: 1. There is an 18 x 7 mm broad-based posterior disc protrusion at L4-5 with an associated small focal left paracentral segment demonstrating inferior subligamentous migration. This results in [id number] central canal narrowing. This compresses the transiting left L5 nerve root and abuts the transiting right L5 nerve root. 2. Moderate size focal central disc protrusion at L5-S1 measuring 12 x 7 mm which abuts the left transiting S1 nerve root. This results in mild central canal narrowing. 3. A 3 mm focal syrinx within the distal thoracic spinal cord. Dedicated nonemergent thoracic spine MRI can be performed with intravenous contrast to assess for extension. Electronically signed by: Mikel Houston M.D. 10/05/2016 7:54 AM Dictated Date/Time: 10/05/2016 7:46 AM
[2016-10-05] MEDS: DOCUSATE SODIUM/SENNA 50/8.6MG TAB PO SCH (09:35)
[2016-10-05] MEDS: ACETAMINOPHEN 325 MG TAB PO PRN (09:36)
[2016-10-05] MEDS ORDERED: METHYLPREDNISOLONE 4MG TAB, 6 DAY TAPER PO SCH (09:45)
--- NOTE | 2016-10-05 09:58 | ORTHOPEDIC CONSULTATION ---
DATE OF ADMISSION: 10/05/2016 CHIEF COMPLAINT: Back pain, buttock and lower extremity difficulty, paresthesias. HISTORY: Bonnie is a delightful young lady. She is 21 years of age. She has a disc herniation lumbar spine L4-L5 and L5-S1. She was admitted for pain control very appropriately so. She actually went home yesterday afternoon on medication. I got called approximately 3:00 a.m. to potentially admit the patient. The medical staff was courteous enough to admit her to their service. I am serving as a consulting physician. She has lower extremity difficulty progressing, movement makes it worse, but no fevers, sweats, chills, or gallbladder issues. MEDICAL HISTORY: Tendinitis. FAMILY HISTORY: Carcinoma. SOCIAL HISTORY: Nonsmoker, non-ETOH user, employed, single. ALLERGIES: Negative. OUTPATIENT MEDICATIONS: Diclofenac. REVIEW OF SYSTEMS: She denies any blurred vision, double vision, tinnitus, vertigo, weight loss. Denies chest pain, shortness of breath. No nausea or vomiting. No loss of bowel or bladder function. OBJECTIVE: VITAL SIGNS: Blood pressure 104/58, pulse regular at 54 beats per minute, respirations 16, 36.9 temperature. LUNGS: Clear to auscultation. ABDOMEN: Soft, nontender. No organomegaly. No referred pain. BACK AND SPINE: Her lumbar spine was normal to inspection. No tenderness. No unusual skin markings such as zoster. EXTREMITIES: Intact x4. No edema or calf tenderness. Negative Homans sign. She has 5/5 strength of the lower and upper extremities, adequate sensation. She has significant pain with straight leg raising on the left. Positive Lasegue sign. Also positive straight leg raising on the right, contralateral. NEROLOGIC: Cranial nerves are intact. RECTAL: We did not do a rectal exam. IMAGES: Were reviewed demonstrating disc herniation L4-L5 and L5-S1, spinal canal narrowing. DISPOSITION: Right now, she is being admitted to the medical service which I am thankful for. She will need good medical care including some IV Solu-Medrol, possibly some Toradol, Neurontin, narcotics. She is being set up for some epidural injections. We are keeping surgery far way as a last resort, this could become a surgical problem. Hopefully, we can get her quieted down during this hospital stay and get her discharged home.
[2016-10-05 10:17] LABS: COMPLETE YES; EOS % 0.8 %; HEMATOCRIT 39.3 % (37-47); IG% 0.4 %; LYMPH % 22.9 %; MEAN CORPUSCULAR HEMOGLOBIN 28.2 pg (25-34); MEAN CORPUSCULAR HGB CONC 32.8 g/dl (32-36); MEAN PLATELET VOLUME 10.1 fL (7.4-10.4); MONO % 1.5 %; NEUT % 74.4 %; PLATELET COUNT 131 K/uL (130-400); RED BLOOD COUNT 4.57 M/uL (4.2-5.4); WHITE BLOOD COUNT 2.62 K/uL (4.8-10.8)
[2016-10-05 10:22] LABS: PROTHROMBIN TIME (PATIENT) 11.1 SECONDS (9.0-12.0)
[2016-10-05] MEDS: METHYLPREDNISOLONE 4 MG TAB PO SCH ×4 (11:19→21:27)
[2016-10-05 11:30] VITALS: BP 117/68; PULSE 48; O2SAT 98
--- NOTE | 2016-10-05 11:51 | Progress Note ---
Subjective Date of Service: Oct 05, 2016. Subjective Pt evaluation today including: conversation w/ patient, physical exam, lab review, review of studies, review of inpatient medication list Saw/examined the patient in room 383 Presented with lower extremity pain; L worse than R states that the pain is better with medications Problem List Medical Problems: (1) Intractable back pain Status: Acute (2) Protrusion of intervertebral disc Status: Acute Review of Systems Musculoskeletal: + joint pain (lower extremities; L Knee) Medications Current Inpatient Medications Medications (Trade) Dose Ordered Sig/Katty Route Start Time Stop Time Status Last Admin Dose Admin Miscellaneous (Iv Fluids Completed) 1 ea PRN PRN N/A 10/05/16 03:15 10/05/17 03:14 Acetaminophen (Tylenol Tab) 650 mg Q4H PRN PO 10/05/16 03:30 11/04/16 03:29 10/05/16 09:36 650 MG Ondansetron HCl (Zofran Inj) 4 mg Q6H PRN IV 10/05/16 03:30 11/04/16 03:29 10/05/16 06:43 4 MG Hydromorphone HCl 1 mg 1 mg Q3H PRN IV 10/05/16 03:30 10/19/16 03:29 10/05/16 11:25 1 MG Sodium Chloride (Nss 1000ml) 1,000 ml @ 60 mls/hr [id number] IV 10/05/16 04:00 10/05/16 20:39 10/05/16 04:10 60 MLS/HR Senna/Docusate Sodium (Senokot S Tab) 1 tab QAM PO 10/05/16 09:00 11/04/16 08:59 10/05/16 09:35 1 TAB Oxycodone HCl (Roxicodone Immediate Rel Tab) 5 mg Q4H PRN PO 10/05/16 09:45 10/19/16 09:44 Gabapentin (Neurontin Cap) 300 mg TID PO 10/05/16 14:00 11/04/16 13:59 Methylprednisolone (Medrol Tab) 8 mg 1100,2100 PO 10/05/16 11:00 10/05/16 21:01 10/05/16 11:19 8 MG Methylprednisolone (Medrol Tab) 4 mg 13,18 PO 10/05/16 13:00 10/05/16 18:01 Methylprednisolone (Medrol Tab) 4 mg 07,13,18 PO 10/06/16 07:00 10/06/16 18:01 Methylprednisolone (Medrol Tab) 8 mg HS PO 10/06/16 21:00 10/06/16 21:01 Methylprednisolone (Medrol Tab) 4 mg 07,13,18,21 PO 10/07/16 07:00 10/07/16 21:01 Methylprednisolone (Medrol Tab) 4 mg 07,13,21 PO 10/08/16 07:00 10/08/16 21:01 Methylprednisolone (Medrol Tab) 4 mg 07,21 PO 10/09/16 07:00 10/09/16 21:01 Methylprednisolone (Medrol Tab) 4 mg 07 PO 10/10/16 07:00 10/10/16 07:01 Objective Vital Signs Date Time Temp Pulse Resp B/P Pulse Ox O2 Delivery O2 Flow Rate FiO2 10/05/16 08:00 Room Air 10/05/16 07:25 37.0 50 16 97/61 97 Room Air 10/05/16 03:30 36.7 43 18 111/67 98 Room Air 10/05/16 03:30 36.7 43 18 111/67 98 Room Air 10/05/16 03:30 Room Air 10/05/16 03:22 47 18 104/58 98 10/05/16 01:48 56 20 112/73 97 Room Air 10/05/16 00:51 50 16 113/70 96 Room Air 10/05/16 00:41 49 16 118/84 100 Room Air 10/04/16 23:24 36.9 54 20 120/79 100 Room Air Physical Exam General Appearance: no apparent distress Neurologic/Psychiatric: alert, normal mood/affect, + motor weakness (painful ROM of the left LE, back) Laboratory Results Last 24 Hours Test 10/05/16 00:30 10/05/16 10:03 Urine Color YELLOW Urine Appearance CLEAR Urine pH 6.5 Urine Specific [place] 1.019 Urine Protein NEG Urine Glucose (UA) NEG Urine Ketones NEG Urine Occult Blood NEG Urine Nitrite NEG Urine Bilirubin NEG Urine Urobilinogen NEG Urine Leukocyte Esterase NEG Urine WBC (Auto) 1-5 /hpf Urine RBC (Auto) 0-4 /hpf Urine Hyaline Casts (Auto) 1-5 /lpf Urine Epithelial Cells (Auto) >30 /lpf Urine Bacteria (Auto) 1+ Urine Test NEG White Blood Count 2.62 K/uL Red Blood Count 4.57 M/uL Hemoglobin 12.9 g/dL Hematocrit 39.3 % Mean Corpuscular Volume 86.0 fL Mean Corpuscular Hemoglobin 28.2 pg Mean Corpuscular Hemoglobin Concent 32.8 g/dl Platelet Count 131 K/uL Mean Platelet Volume 10.1 fL Neutrophils (%) (Auto) 74.4 % Lymphocytes (%) (Auto) 22.9 % Monocytes (%) (Auto) 1.5 % Eosinophils (%) (Auto) 0.8 % Basophils (%) (Auto) 0.0 % Neutrophils # (Auto) 1.95 K/uL Lymphocytes # (Auto) 0.60 K/uL Monocytes # (Auto) 0.04 K/uL Eosinophils # (Auto) 0.02 K/uL Basophils # (Auto) 0.00 K/uL RDW Standard Deviation 41.3 fL RDW Coefficient of Variation 13.0 % Immature Granulocyte % (Auto) 0.4 % Immature Granulocyte # (Auto) 0.01 K/uL Prothrombin Time 11.1 SECONDS Prothromb Time International Ratio 1.0 Activated Partial Thromboplast Time 27.2 SECONDS Partial Thromboplastin Ratio 1.0 Assessment and Plan This is a 21 year old female presented with lower extremity pain, found to have lumbar disc protrusion L4-L5, L5-S1 Disc Herniation Lumbar spine MRI performed showing herniation appreciate ortho input, no surgery at this time pain management consulted started on steroids, IV toradol, neurontin epidural injection on 10/06 DVT ppx SCDs FULL CODE
[2016-10-05] MEDS: GABAPENTIN 300 MG CAP PO SCH ×2 (13:48→21:27)
[2016-10-05 15:19] VITALS: BP 105/58; PULSE 61; TEMP 36.3; O2SAT 99
[2016-10-05] MEDS: OXYCODONE HCL IR 5 MG TAB (IMMEDIATE RELEASE) PO PRN ×2 (17:40→21:28)
[2016-10-05 22:52] VITALS: BP 103/50; PULSE 72; TEMP 37; O2SAT 96
[2016-10-06] MEDS: HYDROmorphone INJ 1 MG/ML SYR IV PRN ×2 (04:30→08:13)
[2016-10-06] MEDS: METHYLPREDNISOLONE 4 MG TAB PO SCH ×3 (06:36→17:43)
[2016-10-06 07:50] VITALS: BP 118/86; PULSE 58; TEMP 36.7; O2SAT 96
[2016-10-06] MEDS ORDERED: TRIAMCINOLONE ACET 40 MG/ML VIAL ONE (08:34)
--- NOTE | 2016-10-06 09:03 | Pain Management Consultation ---
Pain Management Consultation Date of Consultation Oct 05, 2016. Reason for Consultation Pain management. History 21 year old female with history of left leg radicular pain admitted to [facility] for left lower extremity pain. This morning she reported experiencing left sided hip pain for several weeks duration that started about a month. She was seen by the primary care provider and was prescribed physical therapy and OTC and states. Prior to admission, she was jogging incident experiencing more distal radicular pain in the left lower extremity. She rates pain as 10/10 when severe, 4/10 when minimal. Pain is described as sharp, shooting episodes. She is "relatively comfortable" when she is in supine, immobile position. However, with any movement, pain reoccurs. She denied any saddle anesthesia, bowel bladder incontinence, any overt weakness, or any sensory changes and left lower extremity. Symptoms currently with activities of daily living. She has difficulty ambulating because weightbearing on left lower extremity reproduces pain. Since being admitted, she has been treated with mild opiate analgesics orally, IV hydromorphone, as well as IV steroids. MRI was obtained as an inpatient demonstrated 2 level disc herniation. Consultations requested to consider interventional therapy for her radicular pain. Past Medical/Surgical History (1) Tendonitis Social / Work History Smokeless Tobacco Use: No Marital Status: in relationship Occupation: employed Allergies Coded Allergies: No Known Allergies (Unverified , 10/04/16) Medications Current Inpatient Medications Medications (Trade) Dose Ordered Sig/Katty Route Start Time Stop Time Status Last Admin Dose Admin Miscellaneous (Iv Fluids Completed) 1 ea PRN PRN N/A 10/05/16 03:15 10/05/17 03:14 Acetaminophen (Tylenol Tab) 650 mg Q4H PRN PO 10/05/16 03:30 11/04/16 03:29 10/05/16 09:36 650 MG Ondansetron HCl (Zofran Inj) 4 mg Q6H PRN IV 10/05/16 03:30 11/04/16 03:29 10/05/16 06:43 4 MG Hydromorphone HCl (Dilaudid Inj) 1 mg Q3H PRN IV 10/05/16 03:30 10/19/16 03:29 10/05/16 04:05 1 MG Acetaminophen/ Hydrocodone Bitart 1 tab 1 tab Q4H PRN PO 10/05/16 03:30 10/19/16 03:29 10/05/16 08:07 1 TAB Sodium Chloride (Nss 1000ml) 1,000 ml @ 60 mls/hr [id number] IV 10/05/16 04:00 10/05/16 20:39 10/05/16 04:10 60 MLS/HR Senna/Docusate Sodium (Senokot S Tab) 1 tab QAM PO 10/05/16 09:00 11/04/16 08:59 10/05/16 09:35 1 TAB Review of Systems Denies any recent history of fever, night sweats, unexplained weight loss, or constitutional symptoms. Otherwise, 8 point review of system has been reported to be negative. Physical Exam Height & Weight: Height 5 feet, 10.00 inches. Weight 71.200 (Kilograms) 156 (Pounds) Last Vital Signs Documentation Date Time Temp Pulse Resp B/P Pulse Ox O2 Delivery O2 Flow Rate FiO2 10/05/16 07:25 37.0 50 16 97/61 97 Room Air Exam: Bonnie is alert and oriented. Mood and affect are appropriate. Short-term and long-term memory is intact. Sensorium is clear. Inspection of the lumbar spine demonstrates normal curvature with decreased range of motion due to leg pain. No lesions are noted in the lumbar spine region. Provocative testing of the facet joints is unremarkable. Provocative testing of the sacroiliac joints bilaterally including 5 provocative tests is negative. No myofascial tenderness or trigger points identifiable in the paraspinous musculature. Neurologically, straight leg raising is positive, markedly, on the left side at 35 and worsens with acutely stretch. Straight leg raising on the right side is negative past 90 and no changes noted Achilles stretch. Cross straight leg raising is positive with pain on the left side. Sensation and motor strength in the lower extremity are symmetrical without deficit. No pathologic reflexes are noted in the lower extremities. Gait was not tested. Patellar Reflex L +2 R +2 Achilles Reflex L +2 R +2 Laboratory / Imaging Results Imaging: L/S spine MRI: IMPRESSION: 1. There is an 18 x 7 mm broad-based posterior disc protrusion at L4-5 with an associated small focal left paracentral segment demonstrating inferior subligamentous migration. This results in [id number] central canal narrowing. This compresses the transiting left L5 nerve root and abuts the transiting right L5 nerve root. 2. Moderate size focal central disc protrusion at L5-S1 measuring 12 x 7 mm which abuts the left transiting S1 nerve root. This results in mild central canal narrowing. 3. A 3 mm focal syrinx within the distal thoracic spinal cord. Dedicated nonemergent thoracic spine MRI can be performed with intravenous contrast to assess for extension. Electronically signed by: Mikel Houston M.D. 10/05/2016 7:54 AM Assessment 1. L4/L5 and L5/S1 disk herniation with radiculitis left leg. Recommendations 1. Scheduled for L4/L5 and L5/S1 transforaminal epidural steroid injection tomorrow at 8 am. 2. D/C hydrocodone, solumedrol. 3. Start medrol dose pack, oxycodone and gabapentin. 4. Recommend follow up MRI with contrast to evaluate the syrinx found on this current MRI. [employer] Voice Recognition This chart was completed in part utilizing [employer] Voice Recognition Software. Random word insertions, pronoun errors, and incomplete sentences are an occasional consequence of this system due to software limitations and ambient noise. Any questions or concerns about the content, text or information contained within the body of this dictation should be directly addressed to the provider for clarification.
--- NOTE | 2016-10-06 09:07 | Pain Clinic Procedure Note ---
Pain Management Procedure Note Date of Procedure Oct 06, 2016. Procedure Description Procedure: Left L4/L5 and L5/S1 transforaminal epidrual steroid injection. Procedure Time Out: side/site verified, patient ID confirmed, correct procedure Consent Obtained: written Performed By: Dr. Duarte Indications: diagnostic, therapeutic Contraindications: none Pre Procedure Vital Signs Date Time Temp Pulse Resp B/P Pulse Ox O2 Delivery O2 Flow Rate FiO2 10/06/16 07:50 36.7 58 16 118/86 96 Room Air ASA Class: 1 Description: LUMBAR TRANSFORAMINAL EPIDURAL STEROID INJECTION Diagnosis: Intervertebral disc disorder. Lumbar radiculitis. Level injected: Left L4/L5 and L5/S1. Surgeon: Dr. Duarte Prior to starting, the Patients diagnosis and the procedure were reviewed with the patient in detail. Possible risks, complications and alternative therapies were also reviewed. Patients questions were answered. Informed consent was obtained. Allergies and medication list was reviewed. The patient was brought to the fluoroscopy room and placed in prone position on the table. Immediately prior to starting the procedure, a time out was conducted with the staff and the patient where the patient was identified, proposed procedure was verified, consent was reviewed and the proper site for the planned procedure was identified. Fluoroscopy was utilized in performing the procedure to assist the placement of the needle, to evaluate the final position of the needle prior to injection and to avoid intravascular injection. Monitors used included intermittent blood pressure with automated device, continuous pulse oximetry and level of consciousness. Patient was not given any intravenous sedation and constant verbal contact was maintained throughout the procedure. Biplanar fluoroscopy was used to assist in placement of the needle as well as to evaluate final needle position prior to the injection. On examination, no signs of skin breakdown or infection were noted at the injection site. Lumbar-sacral area was prepped with DuraPrep followed by Betadine solution. Sterile drapes were applied. The appropriate interspace and disk was identified in a true AP view. The fluoroscope was then rotated to obtain a decubitus view in such a manner so that the superior articular process of the inferior vertebra was bisecting the pars inter-articularis of the vertebra above in two or in the 6 oclock position. A 22 Gauge 3.5 inch curved (15 degrees) spinal needle was inserted through the skin and subcutaneous tissues, after local anesthetic infiltration, and advanced in a co-axial technique. Needle tip was first placed on the infero-lateral margin of the pars inter-articularis. Once the bony margin was contacted, the C-arm was rotated to obtain a lateral view. The needle was slowly walked off the bone and advanced toward the anterior and superior aspect of the foramen. Patient did not experience any pain or paresthesia. Six inch micro bore tubing was attached to the needle and aspiration did not demonstrate CSF or blood. AP view was checked to ensure the needle tip was in close proximity to the nerve root in the proximal neural foramen lateral to the inferior articular process and in the 6 oclock position. 1 cc of Isovue 300 contrast was injected via the needle under live fluoroscopy. Spread of the contrast was noted in the epidural space and along the nerve root. Neither subdural or subarachnoid spread nor intravascular uptake was noted on plain fluoroscopy. Approximately 10 second digital subtraction angiogram at 8 f/s rate was done in AP view with additional contrast. No vascular uptake was noted. Next 40 mg of Kenalog was injected at each site followed by 1 cc of 2% Xylocaine MPF to flush the needle. The patient did not experience pain during the injection. Adequate hemostasis was noted. A sterile Band-Aid was applied to the injection site. Patient was monitored for 30 minutes and discharged with an accompanying adult. Discharge instructions were reviewed with the patient/caregiver. Any specific questions were answered. Patient/caregiver voiced understanding of the instructions. Follow-up appointment has been scheduled. Complications: none Patient Tolerated Procedure: well Post-Procedure Vital Signs: Vital Signs Date Time Temp Pulse Resp B/P Pulse Ox O2 Delivery O2 Flow Rate FiO2 10/06/16 07:50 36.7 58 16 118/86 96 Room Air Discharge Instructions: reviewed & understood Additional Comments: Patient is scheduled for follow-up visit and possible repeat L4/L5 and L5/S1 transforaminal epidural steroid injection [facility] in 10 days to 2 weeks. Discharge instructions were reviewed with the patient.
[2016-10-06] MEDS: ONDANSETRON INJ 2 MG/ML 2 ML VIAL IV PRN (09:35)
--- NOTE | 2016-10-06 09:36 | Pain Management Progress Note ---
Pain Management Progress Note Date of Service Oct 06, 2016. Subjective Reports no change in symptoms. Continues to have left leg radicular pain. Reports minimal improvement with his oxycodone. Reports no side effects to the oxycodone or gabapentin. He underwent L5/S1 and L4/L5 transforaminal epidural steroid injection this morning uneventfully. Objective Vital Signs: Last Vital Signs Documentation Date Time Temp Pulse Resp B/P Pulse Ox O2 Delivery O2 Flow Rate FiO2 10/06/16 07:50 36.7 58 16 118/86 96 Room Air Physical Exam: A/O.. Positive SLR left. No sensory/motor deficits. Laboratory (Last CBC): 10/05/16 10:03 Red Blood Count 4.57, Mean Corpuscular Volume 86.0, Mean Corpuscular Hemoglobin 28.2, Mean Corpuscular Hemoglobin Concent 32.8, Mean Platelet Volume 10.1, Neutrophils (%) (Auto) 74.4, Lymphocytes (%) (Auto) 22.9, Monocytes (%) (Auto) 1.5, Eosinophils (%) (Auto) 0.8, Basophils (%) (Auto) 0.0, Neutrophils # (Auto) 1.95, Lymphocytes # (Auto) 0.60 L, Monocytes # (Auto) 0.04 L, Eosinophils # ( Auto) 0.02, Basophils # (Auto) 0.00 [place] Drug Monitoring [place] Search Results: patient reviewed within database Assessment 1. Interview with this disorder with lumbar radiculitis left lower extremity. Recommendations 1. Underwent uneventful transforaminal epidural steroid injections morning. 2. May be discharged later today or tomorrow if symptoms improve and can be managed with by oral oxycodone, gabapentin and remaining of the Medrol Dosepak. 3. Recommend follow-up MRI with and without contrast as an outpatient to evaluate the incidental finding of a syrinx on the current MRI. 4. Has a follow-up appointment at [facility] for further outpatient management. [employer] Voice Recognition This chart was completed in part utilizing [employer] Voice Recognition Software. Random word insertions, pronoun errors, and incomplete sentences are an occasional consequence of this system due to software limitations and ambient noise. Any questions or concerns about the content, text or information contained within the body of this dictation should be directly addressed to the provider for clarification.
[2016-10-06] MEDS: DOCUSATE SODIUM/SENNA 50/8.6MG TAB PO SCH (09:43)
[2016-10-06] MEDS: GABAPENTIN 300 MG CAP PO SCH ×2 (09:43→13:36)
--- NOTE | 2016-10-06 09:43 | Discharge Instructions ---
Discharge Instructions Date of Service Oct 06, 2016. Visit Reason for Visit: Left Leg Pain Discharge Discharge Diagnosis / Problem: Intervertebral dissk disorder. Hernisated L4/ L5 and L5/S1. Discharge Goals Goal(s): Decrease discomfort, Improve function Medications Stopped Medications Name(s): none Activity Recommendations Activity Recommendations: no lifting of items 5lbs or more, no repetitive bending, no repetitive twists Exercise/Sports Limitations: rest today, until after follow-up appointment May Resume Sexual Activity: when tolerated Shower/Bathe: no limitations Driving or Machine Use: resume 1 day after discharge Anesthesia . Post Anesthesia Instructions: If you have had General Anesthesia or IV Sedation: * Do not drive today. * Resume driving when surgeon permits. * Do not make important decisions or sign legal documents today. * Call surgeon for: * Temperature elevations greater than 101 degrees F. * Uncontrollable pain. * Excessive bleeding. * Persistent nausea and vomiting. * Medication intolerance (nausea, vomiting or rash). * For nausea and vomiting use only clear liquids such as: tea, soda, bouillon until nausea subsides, then gradually increase diet as tolerated. * If you have any concerns or questions, call your surgeon's office. If physician is unavailable and it is an emergency, call 911 or go to the nearest emergency room. . Instructions Instructions / Follow-Up . * Change band aid. * Call [facility] [phone] or go to the nearest emergency room if he experience high fevers, new back pain, new neurological symptoms such as numbness or weakness in the lower extremity or new bowel bladder incontinence. Also of call if he experience a headache that is positional. * Resume normal activity. No repetitive bending, twisting or reaching overhead for 2 weeks. Do not lift more than 5 pounds for 2 weeks. . Follow-Up Follow-Up: routine office visit in 1/2 weeks (10/20/16 at 9:15 AM) Diet Recommendations Home Diet: no limitations Procedures Procedures Performed: Left L4/L5 and L5/S1 transforaminal epidural epidural steroid injection. Pending Studies Studies pending at discharge: no Medical Emergencies . Who to Call and When: Medical Emergencies: If at any time you feel your situation is an emergency, please call 911 immediately. . Non-Emergent Contact Non-Emergency issues call your: Pain Management provider Call Non-Emergent contact if: you have a fever, temperature is above 101.5, your pain is worsening, your pain is unusual for you, you have any medication questions . . "Provider Documentation" section prepared by Chava Duarte. [place] Drug Monitoring [place] Search Results: patient reviewed within database (Patient not found in [place] PDMP. )
--- NOTE | 2016-10-06 11:53 | Progress Note ---
Subjective Date of Service: Oct 06, 2016. Subjective Pt evaluation today including: conversation w/ patient, physical exam, lab review, review of studies, review of inpatient medication list Saw/examined the patient in room 383 She had an epidural injection today No problems with this procedure Pain is improving Problem List Medical Problems: (1) Intractable back pain Status: Acute (2) Protrusion of intervertebral disc Status: Acute Review of Systems Musculoskeletal: + joint pain (back pain radiating to the left leg) Medications Current Inpatient Medications Medications (Trade) Dose Ordered Sig/Katty Route Start Time Stop Time Status Last Admin Dose Admin Miscellaneous (Iv Fluids Completed) 1 ea PRN PRN N/A 10/05/16 03:15 10/05/17 03:14 Acetaminophen (Tylenol Tab) 650 mg Q4H PRN PO 10/05/16 03:30 11/04/16 03:29 10/05/16 09:36 650 MG Ondansetron HCl (Zofran Inj) 4 mg Q6H PRN IV 10/05/16 03:30 11/04/16 03:29 10/06/16 09:35 4 MG Senna/Docusate Sodium (Senokot S Tab) 1 tab QAM PO 10/05/16 09:00 11/04/16 08:59 10/06/16 09:43 1 TAB Oxycodone HCl (Roxicodone Immediate Rel Tab) 5 mg Q4H PRN PO 10/05/16 09:45 10/19/16 09:44 10/05/16 21:28 5 MG Gabapentin (Neurontin Cap) 300 mg TID PO 10/05/16 14:00 11/04/16 13:59 10/06/16 09:43 300 MG Methylprednisolone (Medrol Tab) 4 mg 07,13,18 PO 10/06/16 07:00 10/06/16 18:01 10/06/16 06:36 4 MG Methylprednisolone (Medrol Tab) 8 mg HS PO 10/06/16 21:00 10/06/16 21:01 Methylprednisolone (Medrol Tab) 4 mg 07,13,18,21 PO 10/07/16 07:00 10/07/16 21:01 Methylprednisolone (Medrol Tab) 4 mg 07,13,21 PO 10/08/16 07:00 10/08/16 21:01 Methylprednisolone (Medrol Tab) 4 mg 07,21 PO 10/09/16 07:00 10/09/16 21:01 Methylprednisolone (Medrol Tab) 4 mg 07 PO 10/10/16 07:00 10/10/16 07:01 Objective Vital Signs Date Time Temp Pulse Resp B/P Pulse Ox O2 Delivery O2 Flow Rate FiO2 10/06/16 07:50 36.7 58 16 118/86 96 Room Air 10/05/16 23:20 Room Air 10/05/16 22:52 37.0 72 14 103/50 96 Room Air 10/05/16 16:00 Room Air 10/05/16 15:19 36.3 61 18 105/58 99 Room Air Physical Exam General Appearance: no apparent distress Respiratory/Chest: lungs clear, normal breath sounds, no respiratory distress, no accessory muscle use Cardiovascular: regular rate, rhythm, no edema, no murmur Extremities: + pertinent finding (improving ROM) Neurologic/Psychiatric: alert, normal mood/affect Assessment and Plan This is a 21 year old female presented with lower extremity pain, found to have lumbar disc protrusion L4-L5, L5-S1 Disc Herniation 10/06 s/p epidural injection will continue medrol dosepak gabapentin oxycodone increased to 7.5mg if pain tolerable with oral medications, she can be discharged later today, or tomorrow on 10/07 10/05 Lumbar spine MRI performed showing herniation appreciate ortho input, no surgery at this time pain management consulted started on steroids, IV toradol, neurontin epidural injection on 10/06 DVT ppx SCDs FULL CODE
[2016-10-06] MEDS: ACETAMINOPHEN 325 MG TAB PO PRN (11:58)
--- NOTE | 2016-10-06 14:37 | PAIN MANAGEMENT PROGRESS NOTE ---
DATE: 10/06/2016 DATE: 10/06/2016. SUBJECTIVE: She is better and she is improved stable. Decreased pain. Better functional ability. OBJECTIVE: VITAL SIGNS: Stable. Pain management on board. No neurological deficit. IMPRESSION: 21-year-old female with disc herniation lumbar spine improving, stabilizing. DISPOSITION: She will have pain management involved later on today the 06 of October. Hopefully get her home later on today or tomorrow. I will be rounding on her again on the September. Surgery not indicated.
[2016-10-06 15:03] VITALS: BP 111/65; PULSE 77; TEMP 36.5; O2SAT 97
[2016-10-06 15:52] VITALS: BP 124/85
[2016-10-06] MEDS: OXYCODONE HCL IR 5 MG TAB (IMMEDIATE RELEASE) PO PRN (15:54)
[2016-10-06] MEDS ORDERED: METH4PAK PO (17:18)
[2016-10-06] MEDS ORDERED: SENN8.6T7 PO (17:18)
[2016-10-06] MEDS ORDERED: NRN300 PO (17:18)
[2016-10-06] MEDS ORDERED: RXC5 PO (17:18)
--- NOTE | 2016-10-06 17:22 | Discharge Instructions ---
Discharge Instructions Date of Service Oct 06, 2016. Admission Reason for Admission: Left Leg Pain Discharge Discharge Diagnosis / Problem: Lumbar Disc Herniation with radiculopathy Discharge Goals Goal(s): Decrease discomfort, Improve function, Diagnostic testing, Therapeutic intervention Activity Recommendations Activity Limitations: resume your previous activity . Instructions / Follow-Up Instructions / Follow-Up Please follow-up with your primary care doctor as an outpatient (you will get a phone call with an appointment) You will be sent home on gabapentin 300mg three times a day You will be sent home with oxycodone - use this only as needed for severe pain - do not drive if you take this You will also be sent home with a medrol dose sonya - skip day #1, tonight (10/06) at supper take a 4mg pill, and 8mg before bedtime, then start day #3 to the end of the pack Follow-up with pain management in 1-2 weeks Current Hospital Diet Patient's current hospital diet: Regular Diet Discharge Diet Recommended Diet: Regular Diet Procedures Procedures Performed: Left L4/L5 and L5/S1 transforaminal epidural epidural steroid injection. Pending Studies Studies pending at discharge: no Medical Emergencies . Who to Call and When: Medical Emergencies: If at any time you feel your situation is an emergency, please call 911 immediately. . Non-Emergent Contact Non-Emergency issues call your: Primary Care Provider . . "Provider Documentation" section prepared by Carmen Sexton. VTE Core Measure Inpt VTE Proph given/why not?: SCD's [place] Drug Monitoring [place] Search Results: no issues identified
[2016-10-06 17:23] VITALS: BP 124/85; PULSE 77; TEMP 36.5; O2SAT 97
--- NOTE | 2016-10-06 17:24 | Discharge Summary ---
Discharge Summary Date of Service Oct 06, 2016. Discharge Summary Admission Date: Oct 05, 2016 at 02:53 Discharge Date: Oct 06, 2016 Discharge Disposition: Home Principal Diagnosis: Lumbar Disc Herniation with Radicular Pain Medication Reconciliation New Medications: Methylprednisolone (Medrol Dosepak) 4 Mg Brandon 1 PKT PO DAILY, #1 PKT Gabapentin (Gabapentin) 300 Mg Cap 300 MG PO TID for 15 Days, #45 CAP Oxycodone HCl (Oxycodone HCl) 5 Mg Tab 5 MG PO Q4H PRN for Pain for 10 Days, #40 TAB Sennosides-Docusate Sodium (Senokot S) 1 Tab Tab 1 TAB PO QAM for 20 Days, #20 TAB Continued Medications: Ibuprofen (Motrin) 400 Mg Tab 400 MG PO Q6H PRN for Pain, TAB Naproxen (Aleve) 220 Mg Tab 440 MG PO, TAB Discontinued Medications: Diclofenac (Voltaren) 75 Mg Tabcr 75 MG PO BID, #20 TAB Admission Information HPI (per Admitting provider): 21 year old female with no known past medical history presenting with persistent left leg pain since last Sunday. Follows with Dr. Bower for Primary Care. Patient was at her usual state of health until last Sunday, after exercising- treadmill, weights, planks- patient started to experience left leg pain initially on left lower leg, then on her thigh. The left leg pain continued on and actually progressed thereafter. Movement worsens the pain. No incontinence, leg weakness/numbness. Patient took Alleve with no relief of pain.. Denies recent trauma. Patient presented to the ER this morning. No DVT, Pelvic/knee/femoral xrays did not show fracture. She was discharged home, and but pain progressed; hence, returned to the ER in the evening. MRI Lumbar spine showed disc protrusion L4-s1 with mild-moderate canal narrowing. On exam, patient's leg pain somewhat impoved with IV Dilaudid, Solumedrol. No leg weakness/numbness. No other symptoms. Physical Exam (per Admitting): General Appearance: WD/WN, no apparent distress Head: normocephalic, atraumatic Eyes: normal inspection, EOMI, sclerae normal ENT: normal ENT inspection, hearing grossly normal, pharynx normal Neck: supple, no adenopathy, thyroid normal, no JVD, trachea midline Respiratory/Chest: chest non-tender, lungs clear, normal breath sounds, no respiratory distress, no accessory muscle use Cardiovascular: regular rate, rhythm, no edema, no gallop, no JVD, no murmur Abdomen/GI: normal bowel sounds, non tender, soft Back: normal inspection, no CVA tenderness Extremities/Musculoskelatal: normal inspection, no calf tenderness, no pedal edema, + pertinent finding ((+) straight leg test) Neurologic/Psych: frame trimmer II-XII nml as tested, no motor/sensory deficits, alert , normal mood/affect, normal reflexes, oriented x 3 Skin: normal color, warm/dry, no rash Lymphatic: + axillary node abnormality Hospital Course This is a 21 year old female presented with lower extremity pain, found to have lumbar disc protrusion L4-L5, L5-S1 Disc Herniation 10/06 s/p epidural injection will continue medrol dosepak gabapentin oxycodone increased to 7.5mg if pain tolerable with oral medications, she can be discharged later today, or tomorrow on 10/07 10/05 Lumbar spine MRI performed showing herniation appreciate ortho input, no surgery at this time pain management consulted started on steroids, IV toradol, neurontin epidural injection on 10/06 DVT ppx SCDs FULL CODE Total time spent on discharge = 25 minutes This includes examination of the patient, discharge planning, medication reconciliation, and communication with other providers. Discharge Instructions Please follow-up with your primary care doctor as an outpatient (you will get a phone call with an appointment) You will be sent home on gabapentin 300mg three times a day You will be sent home with oxycodone - use this only as needed for severe pain - do not drive if you take this You will also be sent home with a medrol dose brandon - skip day #1, tonight (10/06) at supper take a 4mg pill, and 8mg before bedtime, then start day #3 to the end of the pack Follow-up with pain management in 1-2 weeks
[2016-10-06] MEDS ORDERED: METHYLPREDNISOLONE 4 MG TAB PO SCH (21:00)
[2016-10-07] MEDS ORDERED: METHYLPREDNISOLONE 4 MG TAB PO SCH (07:00)
[2016-10-08] MEDS ORDERED: METHYLPREDNISOLONE 4 MG TAB PO SCH (07:00)
[2016-10-09] MEDS ORDERED: METHYLPREDNISOLONE 4 MG TAB PO SCH (07:00)
[2016-10-10] MEDS ORDERED: METHYLPREDNISOLONE 4 MG TAB PO SCH (07:00)
[2017-02-14] MEDS ORDERED: NAPR1TAB9 PO (13:37)
[2017-02-14] MEDS ORDERED: OXYC1TAB3 PO (13:37)
== END 2016-10-06 18:25 | disposition home or self-care (01) ==
LOC: ENRESERVDT → ENRESERVTM → C.EDB 23:18 → C.MSN 10-05 02:53
PROVIDERS: ADMIT Internal Medicine; ATTEND Family Medicine
DX: M51.16 Intervertebral disc disorders with radiculopathy, lumbar region (principal)

== ENCOUNTER 2017-07-10 16:34 | Emergency (ER) | payer OTHER, BC ==
[~2017-07-10] VITALS: Ht 177.8 cm; Wt 75.0 kg
[~2017-07-10 16:34] MED LIST changes: -DICL-201 PO; +OXYC1TAB3 PO
[2017-07-10 16:44] VITALS: TEMP 36.8; Ht 177.8 cm; Wt 75.0 kg
[2017-07-10] MEDS ORDERED: MoRPHine SULFATE 4 MG/ML 1 ML CARP\\VIAL IV STA ×2 (16:55→18:35)
[2017-07-10] MEDS ORDERED: ONDANSETRON INJ 2 MG/ML 2 ML VIAL IV STA (16:55)
[2017-07-10] MEDS ORDERED: KETOROLAC TROMETHAMINE 30 MG/ML VIAL IV STA (16:55)
[2017-07-10] MEDS ORDERED: DEXAMETHASONE SOD INJ 4 MG/ML VIAL IV STA (16:55)
--- NOTE | 2017-07-10 18:03 | DIAGNOSTIC IMAGING REPORT ---
L-SPINE MIN 4 VIEWS ROUTINE CLINICAL HISTORY: Low back pain status post fall. COMPARISON: None FINDINGS: Alignment of the lumbar spine is anatomic. Vertebral body heights are maintained. There is no fracture. Facet joints are intact. There is no osteophytosis. There may be minimal multilevel disc space narrowing. IMPRESSION: No lumbar spine fracture or subluxation. Electronically signed by: Remberto Mensah M.D. 07/10/2017 6:02 PM Dictated Date/Time: 07/10/2017 6:01 PM
[2017-07-10] MEDS ORDERED: IBUP-103 PO (18:04)
--- NOTE | 2017-07-10 18:04 | DIAGNOSTIC IMAGING REPORT ---
SACRUM COCCYX MIN 2 VIEWS CLINICAL HISTORY: Low back pain status post fall. COMPARISON STUDY: Pelvis radiograph October 04, 2016. FINDINGS: Sacroiliac joints are intact. No sacral or coccygeal fracture is identified by radiography. Symphysis pubis is intact. IMPRESSION: No sacral or coccygeal fracture identified by radiography. Electronically signed by: Remberto Mensah M.D. 07/10/2017 6:02 PM Dictated Date/Time: 07/10/2017 6:02 PM
[2017-07-10] MEDS ORDERED: METH4PAK PO (19:41)
[2017-07-10 19:47] VITALS: BP 110/73; PULSE 55; O2SAT 97
--- NOTE | 2017-07-10 19:57 | EMERGENCY ROOM VISIT NOTE ---
History First contact with patient: 16:38 Chief Complaint: BACK PAIN Stated Complaint: PAIN IN LEFT LEG/BACK, PREEXISTING GM.DISC L5/C1 History of Present Illness The patient is a 22 year old female who presents to the Emergency Room with complaints of lower back pain and pain radiating down the left lower extremity to the foot after falling at work at [employer]. Around 3:50 PM, the patient tripped over a child and fell onto her buttocks. She denies any pain extending up the back. She has not had any bladder or bowel incontinence. She currently denies any saddle anesthesias. The patient has a history of back problems, having seen a spine surgeon and last underwent epidural steroid injections at the [facility] in February. The patient has been doing relatively well recently. She currently rates her discomfort a 9 out of 10. Review of Systems 10 system review was performed and was negative except for pertinent positives and negatives as indicated in history of present illness Past Medical/Surgical History Medical Problems: (1) Tendonitis Family History Cancer FH: heart disease Social History Smoking Status: Never Smoker Alcohol Use: occasionally Marital Status: in relationship Housing Status: lives with significant other Occupation Status: employed Current/Historical Medications Scheduled Methylprednisolone (Medrol Dosepak), 0 PO DAILY Scheduled PRN Ibuprofen Tab (Advil), 200 MG PO UD PRN for Pain Naproxen (Aleve), 220 MG PO UD PRN for Pain Oxycodone Ir (Roxicodone Ir), 5 MG PO Q4H PRN for Severe Pain Physical Exam Vital Signs Date Time Temp Pulse Resp B/P (MAP) Pulse Ox O2 Delivery O2 Flow Rate FiO2 07/10/17 19:47 55 16 110/73 97 Room Air 07/10/17 17:48 67 20 120/59 100 07/10/17 16:44 36.8 74 20 167/88 100 Room Air Physical Exam CONSTITUTIONAL: Healthy and well nourished. Alert and oriented X 3 with positive affect. Patient appears in moderate severe discomfort, and is crying. HEENT: Normocephalic, atraumatic. Pupils equal, round and reactive. No epistaxis or subconjunctival hemorrhage. NECK: Full active range of motion without discomfort. RESPIRATORY: Clear to auscultation bilaterally with no wheezing, crackles, rhonchi or stridor. CARDIOVASCULAR: Regular rate and rhythm with no murmurs, rubs or gallops. GASTROINTESTINAL: Bowel sounds present in all quadrants. Soft and nontender to palpation. MUSCULOSKELETAL: The patient has diffuse tenderness to palpation of the lumbar spine, paraspinous muscles and SI joints. Negative logroll. Negative sitting straight leg raise. Ankle plantar/or she flexes strength is 5 out of 5 and symmetric bilaterally. INTEGUMENTARY: No rash or other significant dermatologic conditions noted. NEUROLOGIC: No focal neurologic deficits noted. Lower extremity deep tendon reflexes are 2+ and symmetric bilaterally. Medical Decision & Procedures ER Provider Diagnostic Interpretation: My interpretation of lumbar spine and sacrum/coccyx x-rays does not show any obvious fractures, subluxations or lordotic reversal. Radiologist reports are as follows: L-SPINE MIN 4 VIEWS ROUTINE CLINICAL HISTORY: Low back pain status post fall. COMPARISON: None FINDINGS: Alignment of the lumbar spine is anatomic. Vertebral body heights are maintained. There is no fracture. Facet joints are intact. There is no osteophytosis. There may be minimal multilevel disc space narrowing. IMPRESSION: No lumbar spine fracture or subluxation. SACRUM COCCYX MIN 2 VIEWS CLINICAL HISTORY: Low back pain status post fall. COMPARISON STUDY: Pelvis radiograph October 04, 2016. FINDINGS: Sacroiliac joints are intact. No sacral or coccygeal fracture is identified by radiography. Symphysis pubis is intact. IMPRESSION: No sacral or coccygeal fracture identified by radiography. Medications Administered Medications (Trade) Dose Ordered Sig/Katty Route Start Time Stop Time Status Last Admin Dose Admin Morphine Sulfate (MoRPHine SULFATE INJ) 4 mg NOW STAT IV 07/10/17 16:55 07/10/17 16:58 DC 07/10/17 17:08 4 MG Ketorolac Tromethamine (Toradol Inj) 30 mg NOW STAT IV 07/10/17 16:55 07/10/17 16:58 DC 07/10/17 17:08 30 MG Ondansetron HCl (Zofran Inj) 4 mg NOW STAT IV 07/10/17 16:55 07/10/17 16:58 DC 07/10/17 17:07 4 MG Dexamethasone Sodium Phosphate (Decadron Inj) 8 mg NOW STAT IV 07/10/17 16:55 07/10/17 16:58 DC 07/10/17 17:08 8 MG Morphine Sulfate (MoRPHine SULFATE INJ) 4 mg NOW STAT IV 07/10/17 18:35 07/10/17 18:36 DC 07/10/17 18:43 4 MG ED Course Patient history and physical exam were performed. Nurse's notes were reviewed. Vital signs were reviewed and were normal. The patient appears in moderate severe distress. Because of her discomfort, I suggested intravenous titration of pain medications. The patient was in agreement. IV access was established. The patient was initially administered IV morphine, Toradol, Zofran and Decadron. X-rays of the lumbar spine, sacrum and coccyx were normal. The patient reports persistent pain, and was administered an additional IV morphine dose. After prostate 45 minutes, the patient was able to ambulate, reporting notable pain relief. The patient was encouraged to follow-up with her Worker's Compensation physician for further reevaluation. She was encouraged to avoid any heavy lifting or sitting for long periods of time. The patient reports that she does plan to follow-up with a spine surgeon when she goes home to [place] over the break. She reports that she also has plenty of pain medications left at home from her last back exacerbation. She was encouraged to alternate ibuprofen and Tylenol for baseline pain relief. The patient was provided a prescription for a Medrol Dosepak as well. The patient was happy with plan of care, voiced understanding of all discharge instructions, and rated her discomfort a 3 out of 10 at the time of discharge with a friend. Medical Decision [place] Drug Monitoring Program Search Results: patient reviewed within database, no issues identified Medication Reconcilliation Current Medication List: was personally reviewed by wy Blood Pressure Screening Patient's blood pressure: Normal blood pressure Impression Primary Impression: Acute lumbar myofascial strain Additional Impressions: Fall from slip, trip, or stumble Work related injury Departure Information Prescriptions Methylprednisolone (MEDROL DOSEPAK) 4 Mg Brandon 0 PO DAILY, #1 PKT Prov: Isma Haile PA 07/10/17 Referrals Ryan Bower, D.ODasia (PCP) Patient Instructions My [facility] Problem Qualifiers Primary Impression: Acute lumbar myofascial strain Encounter type: initial encounter Qualified Codes: S39.012A - Strain of muscle, fascia and tendon of lower back, initial encounter Additional Impressions: Fall from slip, trip, or stumble Encounter type: initial encounter Qualified Codes: W01.0XXA - Fall on same level from slipping, tripping and stumbling without subsequent striking against object, initial encounter
== END 2017-07-10 19:48 | disposition home or self-care (01) ==
LOC: C.EDB 16:36 → C.EDD 19:48
DX: S39.012A Strain of muscle, fascia and tendon of lower back, initial encounter (principal); W01.0XXA Fall on same level from slipping, tripping and stumbling without subsequent striking against object, initial encounter

== ENCOUNTER 2017-07-12 06:07 | Emergency (ER) | payer BC, OTHER ==
[~2017-07-12] VITALS: Ht 177.8 cm; Wt 75.7 kg
[~2017-07-12 06:07] MED LIST changes: +IBUP-103 PO; +METH4PAK PO
[2017-07-12 06:13] VITALS: TEMP 36.6; Ht 177.8 cm; Wt 75.7 kg
[2017-07-12] MEDS ORDERED: ONDANSETRON INJ 2 MG/ML 2 ML VIAL IV STA (06:33)
[2017-07-12] MEDS ORDERED: SODIUM CHLORIDE 0.9% 1000ML 1,000 ML IV ONE (06:45)
[2017-07-12] MEDS: MoRPHine SULFATE 4 MG/ML 1 ML CARP\\VIAL IV PRN ×3 (06:55→09:45)
[2017-07-12 06:58] LABS: BASO % 0.3 %; BASO ABS # 0.02 K/uL (0-0.2); COMPLETE YES; EOS % 0.9 %; HEMATOCRIT 40.6 % (37-47); LYMPH % 48.5 %; LYMPH ABS # 2.83 K/uL (1.2-3.4); MEAN CELL VOLUME 86.8 fL (80-100); MEAN CORPUSCULAR HEMOGLOBIN 28.2 pg (25-34); MEAN CORPUSCULAR HGB CONC 32.5 g/dl (32-36); MEAN PLATELET VOLUME 10.8 fL (7.4-10.4); NEUT % 44.3 %; PLATELET COUNT 164 K/uL (130-400); RED BLOOD COUNT 4.68 M/uL (4.2-5.4); WHITE BLOOD COUNT 5.84 K/uL (4.8-10.8)
[2017-07-12 06:59] LABS: URINE APPEARANCE CLEAR (CLEAR); URINE BILIRUBIN NEG (NEG); URINE COLOR YELLOW; URINE NITRITE NEG (NEG); URINE SPECIFIC GRAVITY 1.032 (1.000-1.030); UROBILINOGEN NEG (NEG); ZZUR CULT IF INDIC CLEAN CATCH NO
[2017-07-12 07:00] LABS: MANUAL MICROSCOPIC REQUIRED? NO; REVIEW REQ? NO
[2017-07-12 07:15] LABS: CALCIUM 8.7 mg/dl (8.5-10.1); CREATININE 0.69 mg/dl (0.60-1.20); POTASSIUM 3.5 mmol/L (3.5-5.1)
[2017-07-12 07:18] LABS: ALB/GLOB RATIO 1.1 (0.9-2)
--- NOTE | 2017-07-12 07:20 | EMERGENCY ROOM VISIT NOTE ---
History First contact with patient: 06:22 Chief Complaint: ABDOMINAL PAIN Stated Complaint: ABDOMINAL/BACK PAIN History of Present Illness The patient is a 22 year old female who presents to the Emergency Room with complaints of anterior abdominal pain that began worsening over the past 5 or 6 hours. The patient does not have a history of similar symptoms in the past. She has never had abdominal surgery. She does report some chronic back pain, and does follow with the pain clinic for this. She feels like she is using the bathroom is normal. No nausea or vomiting. She is irregular with her menses, and states her last menstrual period was 7 weeks ago. She is sexually active in a mutually monogamous relationship. She is not having vaginal drainage, discharge, or irritation. She identifies most of her pain around her umbilicus without radiation. The pain is sharp in nature. She has not had fever or chills. She has not taken anything [id number] for her symptoms. Review of Systems More than 10 systems were reviewed and otherwise negative with the exception of history of present illness. Past Medical/Surgical History Medical Problems: (1) Tendonitis Family History Cancer FH: heart disease Social History Smoking Status: Never Smoker Alcohol Use: occasionally Marital Status: in relationship Housing Status: lives with significant other Occupation Status: employed Current/Historical Medications Scheduled Methylprednisolone (Medrol Dosepak), 0 PO DAILY Scheduled PRN Ibuprofen Tab (Advil), 200 MG PO UD PRN for Pain Naproxen (Aleve), 220 MG PO UD PRN for Pain Oxycodone Ir (Roxicodone Ir), 5 MG PO Q4H PRN for Severe Pain Physical Exam Vital Signs Date Time Temp Pulse Resp B/P (MAP) Pulse Ox O2 Delivery O2 Flow Rate FiO2 07/12/17 07:01 54 18 123/72 99 Room Air 07/12/17 06:13 36.6 52 16 127/85 98 Room Air Physical Exam VITALS: Vitals are noted on the nurse's note and reviewed by myself. Vital signs stable. GENERAL: Well-developed, well-nourished, white female, who is in no acute distress and resting comfortably. Patient is cooperative with the examination. HEART: Regular rate and rhythm without murmurs gallops or rubs. LUNGS: Clear to auscultation bilaterally without wheezes, rales or rhonchi. No retractions or accessory muscle use. ABDOMEN: Positive normal bowel sounds x 4. Soft with reproducible tenderness in the periumbilical area on outpatient. There is no distinct left lower or right lower quadrant tenderness. There is some mild suprapubic tenderness. No CVA tenderness. No rebound or guarding. MUSCULOSKELETAL: No muscle atrophy, erythema, or edema noted. Full range of motion without joint tenderness in all extremities. Medical Decision & Procedures Laboratory Results 07/12/17 06:38 Red Blood Count 4.68, Mean Corpuscular Volume 86.8, Mean Corpuscular Hemoglobin 28.2, Mean Corpuscular Hemoglobin Concent 32.5, Mean Platelet Volume 10.8, Neutrophils (%) (Auto) 44.3, Lymphocytes (%) (Auto) 48.5, Monocytes (%) (Auto) 6.0, Eosinophils (%) (Auto) 0.9, Basophils (%) (Auto) 0.3, Neutrophils # (Auto) 2.59, Lymphocytes # (Auto) 2.83, Monocytes # (Auto) 0.35, Eosinophils # (Auto) 0.05, Basophils # (Auto) 0.02 Test 07/12/17 06:38 White Blood Count 5.84 K/uL (4.8-10.8) Red Blood Count 4.68 M/uL (4.2-5.4) Hemoglobin 13.2 g/dL (12.0-16.0) Hematocrit 40.6 % (37-47) Mean Corpuscular Volume 86.8 fL (80-100) Mean Corpuscular Hemoglobin 28.2 pg (25-34) Mean Corpuscular Hemoglobin Concent 32.5 g/dl (32-36) Platelet Count 164 K/uL (130-400) Mean Platelet Volume 10.8 fL (7.4-10.4) Neutrophils (%) (Auto) 44.3 % Lymphocytes (%) (Auto) 48.5 % Monocytes (%) (Auto) 6.0 % Eosinophils (%) (Auto) 0.9 % Basophils (%) (Auto) 0.3 % Neutrophils # (Auto) 2.59 K/uL (1.4-6.5) Lymphocytes # (Auto) 2.83 K/uL (1.2-3.4) Monocytes # (Auto) 0.35 K/uL (0.11-0.59) Eosinophils # (Auto) 0.05 K/uL (0-0.5) Basophils # (Auto) 0.02 K/uL (0-0.2) RDW Standard Deviation 42.5 fL (36.4-46.3) RDW Coefficient of Variation 13.4 % (11.5-14.5) Immature Granulocyte % (Auto) 0.0 % Immature Granulocyte # (Auto) 0.00 K/uL (0.00-0.02) Urine Color YELLOW Urine Appearance CLEAR (CLEAR) Urine pH 5.0 (4.5-7.5) Urine Specific [place] 1.032 (1.000-1.030) Urine Protein NEG (NEG) Urine Glucose (UA) NEG (NEG) Urine Ketones NEG (NEG) Urine Occult Blood NEG (NEG) Urine Nitrite NEG (NEG) Urine Bilirubin NEG (NEG) Urine Urobilinogen NEG (NEG) Urine Leukocyte Esterase NEG (NEG) Medications Administered Medications (Trade) Dose Ordered Sig/Katty Route Start Time Stop Time Status Last Admin Dose Admin Sodium Chloride 1,000 ml @ 999 mls/hr Q1H1M ONCE IV 07/12/17 06:45 07/12/17 07:45 07/12/17 06:55 999 MLS/HR Morphine Sulfate (MoRPHine SULFATE INJ) 4 mg Q1H PRN IV 07/12/17 06:45 07/26/17 06:44 07/12/17 06:55 4 MG Ondansetron HCl (Zofran Inj) 4 mg NOW STAT IV 07/12/17 06:33 07/12/17 06:36 DC 07/12/17 06:54 4 MG ED Course Physical exam and history were performed. Nursing notes, EMR, and Medication List were personally reviewed. Patient appears to have generalized periumbilical abdominal pain for the past several hours. The patient did not appear toxic on examination. IV access was established and labs were obtained. She was hydrated with normal saline and given IV morphine and IV Zofran for her symptoms. Her test is negative, and I elected to perform a pelvic ultrasound and CT scan of the abdomen and pelvis. The patient remained in stable condition until the time of shift change. The case was discussed with my colleague, Aristides Cabrera PA-C, who will assume care at this time. Please see Mr Cabrera's dictation for the patient's remaining labs and imaging studies, as well as her course and disposition. The chart was completed utilizing [employer] Speech Voice Recognition Software. Grammatical errors, random word insertions, pronoun errors, and incomplete sentences are an occasional consequence of this system due to software limitations, ambient noise, and hardware issues. Any formal questions or concerns about the content, text, or information contained within the body of this dictation should be directly addressed to the provider for clarification. . Medical Decision Differential diagnosis: Etiologies such as [employer] etiology, appendicitis, diverticulitis, PUD, biliary pathology, UTI, pancreatitis, obstruction, mesenteric ischemia, aortic pathology , infections, inflammatory bowel disease, renal colic, as well as others were entertained. Impression Primary Impression: Generalized abdominal pain Departure Information Referrals Ryan Bower, D.O. (PCP) Patient Instructions My [facility]
--- NOTE | 2017-07-12 07:47 | EMERGENCY ROOM VISIT NOTE ---
ED Visit Note First contact with patient: 07:09 Patient was initially evaluated by Ezio Richard PA-C. Case was signed out to me at time of shift change. This was at 0700 hrs. on July 12, 2017. Please refer to his initial note for the patient's history of present illness, review of systems, and physical examination as these are unchanged. At the time the case was signed out to me the imaging was pending. She presents today with lower abdominal pain. She was resting comfortably. IMAGING: PELVIC COMPLETE NON OB, TRANSVAG-FEMALE PELVIS CLINICAL HISTORY: 22 years-old Female presenting with Low abd pain, history of irregular periods, last menstrual period 7 weeks ago. TECHNIQUE: Real-time grayscale and color and spectral Doppler ultrasound imaging of the pelvis was performed first using a transabdominal probe and subsequently transvaginal for better characterization. COMPARISON: None. FINDINGS: Uterus: Normal. Anteverted. The uterus measures 7.6 x 3.4 x 3.5 cm. Endometrial stripe measures 4 mm in thickness. Endometrium normal-appearing. Cervix contains nabothian cysts. Right adnexa: Right ovary contains multiple follicles. Right ovary measures 4.4 x 4.5 x 2.2 cm (calculated volume 22.7 mL). Normal color Doppler flow and arterial and venous waveforms within the ovarian parenchyma. Left adnexa: Left ovary contains multiple follicles. Left ovary measures 4.9 x 3.8 x 2.3 cm (calculated volume 22.3 mL). Normal color Doppler flow and arterial and venous waveforms within the ovarian parenchyma. Other: Trace free fluid, likely physiologic. IMPRESSION: Mildly enlarged bilateral ovaries without convincing evidence of ovarian torsion. Both ovaries contain numerous follicles. Follow-up pelvic ultrasound in 4-6 weeks could be considered to evaluate for evolution of ovarian follicles and better characterization of their number and size as these findings could potentially be consistent with polycystic ovarian syndrome in the proper clinical setting. Electronically signed by: Tyron Merrill M.D. 07/12/2017 8:22 AM Dictated Date/Time: 07/12/2017 8:17 AM ABD/PELVIS IV AND ORAL CONT CLINICAL HISTORY: 22 years-old Female presenting with Low abd pain, right lower quadrant pain and umbilical pain. TECHNIQUE: Multidetector CT of the abdomen and pelvis was performed after the administration of oral and intravenous contrast. IV contrast: 94 mL of Optiray 320. A dose lowering technique was used consistent with the principles of ALARA (as low as reasonably achievable). COMPARISON: Pelvic ultrasound performed earlier the same day. CT DOSE (mGy.cm): The estimated cumulative dose is 422.01 mGy.cm. FINDINGS: [employer] Machine Operator topogram: Unremarkable. Lung bases: Minimal dependent changes likely atelectasis. Normal heart size. No pericardial or pleural effusion. Liver: Heterogeneous hepatic enhancement suggests parenchymal edema. Periportal edema. No focal lesion. Patent hepatic vasculature. Biliary: No intrahepatic or extrahepatic biliary ductal dilatation. Normal gallbladder. Pancreas: Normal. Spleen: Normal. Adrenal glands: Normal. Kidneys and ureters: Normal. No hydronephrosis. Bladder: Suggestion of mild circumferential bladder wall thickening with layering bladder debris noted in the left aspect of the bladder posteriorly. Pelvic organs: Uterus and ovaries normal. However, the ovaries are rather prominent bilaterally as seen on ultrasound. Bowel: The rectum is distended with gas. Mild stool burden throughout the right colon throughout normal caliber colon. Normal appendix, which is gas-filled and normal in diameter. Feces noted in the distal small bowel suggesting delayed transit. No evidence of bowel obstruction. No convincing evidence of bowel wall thickening. Peritoneal cavity: Trace free fluid in the pelvis. Lymph nodes: No enlarged lymph nodes in the abdomen or pelvis. Vasculature: Aorta and IVC patent and normal in caliber. Abdominal wall: Normal. Musculoskeletal: Normal. IMPRESSION: 1. No evidence of appendicitis or convincing evidence of acute intra-abdominal pathology. 2. Heterogeneous enhancement pattern of the liver suggest parenchymal edema, which combine with periportal edema can be seen in the setting of aggressive volume resuscitation or hepatitis. Correlate clinically. 3. The ovaries are prominent bilaterally as seen on ultrasound. Please see separately dictated ultrasound. Electronically signed by: Tyron Merrill M.D. 07/12/2017 9:26 AM Dictated Date/Time: 07/12/2017 9:03 AM Medical Decision/Course: Patient was seen and evaluated as above. She presents to us today with abdominal pain. She was pain-free after receiving morphine for her pain. She appears well on exam. There is no emergent abnormality identified on her blood work. Urine is normal. Prevacid negative. CT scan was obtained and reveals fluid around the liver which I believe is secondary to the recent 1 L she received here today intravenously. Because of the recommendation from radiology I did add a hepatitis panel however there is no other clinical nor is there any lab evidence of hepatitis. She is to follow with her family doctor for this. Because the ultrasound does reveal what appears to be concerning for PCOS I recommend follow-up with [facility]PER[facility]. She is to call later today. She is also to follow-up with her family doctor. She is to return with worsening. She notes that she does have Roxicodone at home for pain. She was educated upon management, educated upon worrisome symptoms which to return, had questions and provided discharge, and was discharged home in good condition. I do not suspect any emergent cause to her pain at this time. In evaluation treatment this patient following differential diagnoses were obtained: Appendicitis, PCOS, UTI, among others. Problem List Medical Problems: (1) Tendonitis Status: Chronic Current/Historical Medications Scheduled Methylprednisolone (Medrol Dosepak), 0 PO DAILY Scheduled PRN Ibuprofen Tab (Advil), 200 MG PO UD PRN for Pain Naproxen (Aleve), 220 MG PO UD PRN for Pain Oxycodone Ir (Roxicodone Ir), 5 MG PO Q4H PRN for Severe Pain Allergies Coded Allergies: No Known Allergies (Unverified , 10/04/16) Vital Signs Date Time Temp Pulse Resp B/P (MAP) Pulse Ox O2 Delivery O2 Flow Rate FiO2 07/12/17 10:03 49 18 107/65 97 Room Air 07/12/17 08:52 54 18 116/77 100 Room Air 07/12/17 08:04 47 18 94/74 99 Room Air 07/12/17 07:01 54 18 123/72 99 Room Air 07/12/17 06:13 36.6 52 16 127/85 98 Room Air Laboratory Results 07/12/17 06:38 Red Blood Count 4.68, Mean Corpuscular Volume 86.8, Mean Corpuscular Hemoglobin 28.2, Mean Corpuscular Hemoglobin Concent 32.5, Mean Platelet Volume 10.8, Neutrophils (%) (Auto) 44.3, Lymphocytes (%) (Auto) 48.5, Monocytes (%) (Auto) 6.0, Eosinophils (%) (Auto) 0.9, Basophils (%) (Auto) 0.3, Neutrophils # (Auto) 2.59, Lymphocytes # (Auto) 2.83, Monocytes # (Auto) 0.35, Eosinophils # (Auto) 0.05, Basophils # (Auto) 0.02 07/12/17 06:38 Test 07/12/17 06:33 07/12/17 06:38 Urine Test NEG (NEG) White Blood Count 5.84 K/uL (4.8-10.8) Red Blood Count 4.68 M/uL (4.2-5.4) Hemoglobin 13.2 g/dL (12.0-16.0) Hematocrit 40.6 % (37-47) Mean Corpuscular Volume 86.8 fL (80-100) Mean Corpuscular Hemoglobin 28.2 pg (25-34) Mean Corpuscular Hemoglobin Concent 32.5 g/dl (32-36) Platelet Count 164 K/uL (130-400) Mean Platelet Volume 10.8 fL (7.4-10.4) Neutrophils (%) (Auto) 44.3 % Lymphocytes (%) (Auto) 48.5 % Monocytes (%) (Auto) 6.0 % Eosinophils (%) (Auto) 0.9 % Basophils (%) (Auto) 0.3 % Neutrophils # (Auto) 2.59 K/uL (1.4-6.5) Lymphocytes # (Auto) 2.83 K/uL (1.2-3.4) Monocytes # (Auto) 0.35 K/uL (0.11-0.59) Eosinophils # (Auto) 0.05 K/uL (0-0.5) Basophils # (Auto) 0.02 K/uL (0-0.2) RDW Standard Deviation 42.5 fL (36.4-46.3) RDW Coefficient of Variation 13.4 % (11.5-14.5) Immature Granulocyte % (Auto) 0.0 % Immature Granulocyte # (Auto) 0.00 K/uL (0.00-0.02) Urine Color YELLOW Urine Appearance CLEAR (CLEAR) Urine pH 5.0 (4.5-7.5) Urine Specific [place] 1.032 (1.000-1.030) Urine Protein NEG (NEG) Urine Glucose (UA) NEG (NEG) Urine Ketones NEG (NEG) Urine Occult Blood NEG (NEG) Urine Nitrite NEG (NEG) Urine Bilirubin NEG (NEG) Urine Urobilinogen NEG (NEG) Urine Leukocyte Esterase NEG (NEG) Anion Gap 6.0 mmol/L (3-11) Est Creatinine Clear Calc Drug Dose 136.0 ml/min Estimated GFR () 141.2 Estimated GFR (Non- 121.8 BUN/Creatinine Ratio 30.0 (10-20) Calcium Level 8.7 mg/dl (8.5-10.1) Total Bilirubin 0.3 mg/dl (0.2-1) Aspartate Amino Transf (AST/SGOT) 15 U/L (15-37) Alanine Aminotransferase (ALT/SGPT) 26 U/L (12-78) Alkaline Phosphatase 51 U/L (45-117) Total Protein 7.2 gm/dl (6.4-8.2) Albumin 3.7 gm/dl (3.4-5.0) Globulin 3.5 gm/dl (2.5-4.0) Albumin/Globulin Ratio 1.1 (0.9-2) Lipase 163 U/L (73-393) Medications Administered Medications (Trade) Dose Ordered Sig/Katty Route Start Time Stop Time Status Last Admin Dose Admin Sodium Chloride 1,000 ml @ 999 mls/hr Q1H1M ONCE IV 07/12/17 06:45 07/12/17 07:45 DC 07/12/17 06:55 999 MLS/HR Morphine Sulfate (MoRPHine SULFATE INJ) 4 mg Q1H PRN IV 07/12/17 06:45 07/26/17 06:44 07/12/17 09:45 4 MG Ondansetron HCl (Zofran Inj) 4 mg NOW STAT IV 07/12/17 06:33 07/12/17 06:36 DC 07/12/17 06:54 4 MG Departure Information Impression Primary Impression: Generalized abdominal pain Dispostion Home / Self-Care Condition GOOD Referrals Ryan Bower D.O. (PCP) Neftali Cronin M.D. Patient Instructions My [facility] Additional Instructions You have been treated in the Emergency Department your Abdominal Pain. Laboratory results and imaging studies have ruled out any emergent causes for your abdominal pain which would warrant admission or surgery. Please follow-up with [facility] regarding the ultrasound revealing enlarged ovaries. For pain control, you can use the following [id number] medicines (if >12 yo): - Regular strength (325mg/tab) Tylenol (acetaminophen) 2 tabs every 4-6 hours as needed. Do not exceed 12 tablets in a 24 hour period. Avoid taking more than 3 grams (3000 mg) of Tylenol per day. This includes any other sources of acetaminophen you may take on a regular basis. - Regular strength (200 mg/tab) Advil (ibuprofen) 1-2 tabs every 4-6 hours as needed. Do not exceed a dose of 3200 mg per day. Drink plenty of water and stay well hydrated. As with any trip to the Emergency Department, you should follow-up with your Primary Care Provider from today's visit. Please return with any new/concerning symptoms. Return to the emergency department if your symptoms persist despite treatment plan outlined above or if the following symptoms occur: increased fevers, chills , worsening nausea/vomiting, blood in your stool or urine.
--- NOTE | 2017-07-12 08:23 | DIAGNOSTIC IMAGING REPORT ---
PELVIC COMPLETE NON OB, TRANSVAG-FEMALE PELVIS CLINICAL HISTORY: 22 years-old Female presenting with Low abd pain, history of irregular periods, last menstrual period 7 weeks ago. TECHNIQUE: Real-time grayscale and color and spectral Doppler ultrasound imaging of the pelvis was performed first using a transabdominal probe and subsequently transvaginal for better characterization. COMPARISON: None. FINDINGS: Uterus: Normal. Anteverted. The uterus measures 7.6 x 3.4 x 3.5 cm. Endometrial stripe measures 4 mm in thickness. Endometrium normal-appearing. Cervix contains nabothian cysts. Right adnexa: Right ovary contains multiple follicles. Right ovary measures 4.4 x 4.5 x 2.2 cm (calculated volume 22.7 mL). Normal color Doppler flow and arterial and venous waveforms within the ovarian parenchyma. Left adnexa: Left ovary contains multiple follicles. Left ovary measures 4.9 x 3.8 x 2.3 cm (calculated volume 22.3 mL). Normal color Doppler flow and arterial and venous waveforms within the ovarian parenchyma. Other: Trace free fluid, likely physiologic. IMPRESSION: Mildly enlarged bilateral ovaries without convincing evidence of ovarian torsion. Both ovaries contain numerous follicles. Follow-up pelvic ultrasound in 4-6 weeks could be considered to evaluate for evolution of ovarian follicles and better characterization of their number and size as these findings could potentially be consistent with polycystic ovarian syndrome in the proper clinical setting. Electronically signed by: Tyron Merrill M.D. 07/12/2017 8:22 AM Dictated Date/Time: 07/12/2017 8:17 AM
[2017-07-12] MEDS ORDERED: OPTIRAY 320 IV PRN (08:30)
--- NOTE | 2017-07-12 09:27 | DIAGNOSTIC IMAGING REPORT ---
ABD/PELVIS IV AND ORAL CONT CLINICAL HISTORY: 22 years-old Female presenting with Low abd pain, right lower quadrant pain and umbilical pain. TECHNIQUE: Multidetector CT of the abdomen and pelvis was performed after the administration of oral and intravenous contrast. IV contrast: 94 mL of Optiray 320. A dose lowering technique was used consistent with the principles of ALARA (as low as reasonably achievable). COMPARISON: Pelvic ultrasound performed earlier the same day. CT DOSE (mGy.cm): The estimated cumulative dose is 422.01 mGy.cm. FINDINGS: Healthcare Social Worker topogram: Unremarkable. Lung bases: Minimal dependent changes likely atelectasis. Normal heart size. No pericardial or pleural effusion. Liver: Heterogeneous hepatic enhancement suggests parenchymal edema. Periportal edema. No focal lesion. Patent hepatic vasculature. Biliary: No intrahepatic or extrahepatic biliary ductal dilatation. Normal gallbladder. Pancreas: Normal. Spleen: Normal. Adrenal glands: Normal. Kidneys and ureters: Normal. No hydronephrosis. Bladder: Suggestion of mild circumferential bladder wall thickening with layering bladder debris noted in the left aspect of the bladder posteriorly. Pelvic organs: Uterus and ovaries normal. However, the ovaries are rather prominent bilaterally as seen on ultrasound. Bowel: The rectum is distended with gas. Mild stool burden throughout the right colon throughout normal caliber colon. Normal appendix, which is gas-filled and normal in diameter. Feces noted in the distal small bowel suggesting delayed transit. No evidence of bowel obstruction. No convincing evidence of bowel wall thickening. Peritoneal cavity: Trace free fluid in the pelvis. Lymph nodes: No enlarged lymph nodes in the abdomen or pelvis. Vasculature: Aorta and IVC patent and normal in caliber. Abdominal wall: Normal. Musculoskeletal: Normal. IMPRESSION: 1. No evidence of appendicitis or convincing evidence of acute intra-abdominal pathology. 2. Heterogeneous enhancement pattern of the liver suggest parenchymal edema, which combine with periportal edema can be seen in the setting of aggressive volume resuscitation or hepatitis. Correlate clinically. 3. The ovaries are prominent bilaterally as seen on ultrasound. Please see separately dictated ultrasound. Electronically signed by: Tyron Merrill M.D. 07/12/2017 9:26 AM Dictated Date/Time: 07/12/2017 9:03 AM
[2017-07-12 10:41] VITALS: BP 100/57; PULSE 57; O2SAT 94
== END 2017-07-12 10:42 | disposition home or self-care (01) ==
LOC: C.EDB 06:08 → C.EDA 10:42
DX: R10.84 Generalized abdominal pain (principal); G89.29 Other chronic pain; M54.9 Dorsalgia, unspecified; Z80.9 Family history of malignant neoplasm, unspecified